=== PATIENT | female | born 1985 | race Caucasian/White ===

== ENCOUNTER → 2018-02-19 | Outpatient (CLI) | payer OTHER ==
--- NOTE | 2018-02-19 10:16 | MM ---
Reason for exam: clinical finding. History: Family history of breast cancer in maternal grandmother. Took hormonal contraceptives for 1 year. Indicated problem(s): lump or thickening in the left breast. Physical Findings: Nurse did not find any significant physical abnormalities on exam. MG Diagnostic Mammo w CAD MATIAS Bilateral CC and MLO view(s) were taken. There are scattered fibroglandular densities. No suspicious calcifications are seen. There is no discrete abnormality including area of concern. These results were verbally communicated with the patient and result sheet given to the patient on 02/19/18. ASSESSMENT: Negative, BI-RAD 1 RECOMMENDATION: Routine screening mammogram of both breasts at age 42. Manage patient on a clinical basis.
== END ==
LOC: RADMAMWWP 09:22
PROVIDERS: ATTEND Family Medicine
DX: N63.24 Unspecified lump in the left breast, lower inner quadrant (principal)
CPT/HCPCS: 77066

== ENCOUNTER → 2018-09-14 | Outpatient (CLI) | payer OTHER ==
--- NOTE | 2018-09-14 11:56 | XR ---
EXAMINATION TYPE: XR lumbar spine 2 or 3V DATE OF EXAM: 09/14/2018 COMPARISON: None HISTORY: Low back pain TECHNIQUE: Three-view lumbar spine FINDINGS: No acute fractures are evident. Disc heights are preserved. Vertebral body heights are pres erved. Alignment is normal. T12 ribs are rudimentary. IMPRESSION: 1. Normal three-view lumbar spine
== END ==
LOC: RADXRMAIN 11:28
PROVIDERS: ATTEND Physician Assistant
DX: M54.5 Low back pain (principal)
CPT/HCPCS: 72100

== ENCOUNTER → 2019-09-25 | Outpatient (CLI) | payer OTHER ==
--- NOTE | 2019-09-26 08:56 | MM ---
Reason for exam: clinical finding. Last mammogram was performed 1 year and 7 months ago. History: Family history of breast cancer in maternal grandmother. Took hormonal contraceptives for 1 year. Physical Findings: Nurse Summary: 1.5 x 1cm nodule in the left breast at 10 o'clock (nurse ts). MG 3D Diag Mammo W/Cad LT CC and MLO view(s) were taken of the left breast. Prior study comparison: February 19, 2018, bilateral MG diagnostic mammo w CAD MATIAS. There are scattered fibroglandular densities. Finding: There is a 5 mm circumscribed round mass in the left breast consistent with dermal based at BB. These results were verbally communicated with the patient and result sheet given to the patient on 09/25/19. ASSESSMENT: Benign, BI-RAD 2 RECOMMENDATION: Routine screening mammogram of both breasts at age 42. (unless new problem) Manage on a clinical basis with regard to probable dermatic lesion at right axilla.
== END | disposition home or self-care (01) ==
LOC: RADMAMWWP 09:05
PROVIDERS: ATTEND Family Medicine
DX: N63.24 Unspecified lump in the left breast, lower inner quadrant (principal)
CPT/HCPCS: 77065; G0279; 77061

== ENCOUNTER → 2019-12-27 | Outpatient (CLI) | payer OTHER ==
[2019-12-27 11:17] VITALS: BP 124/79; PULSE 68; RESP 18; TEMP 98.3
--- NOTE | 2019-12-27 12:31 | P.GSHP ---
History of Present Illness H&P Date: 12/27/19 Chief Complaint: lump left breast Berna is a 34 year old white female seen in consultation for Dr. Patterson with a complaint of a lump on her left breast at skin level. She also complains of swelling of her axilla's bilaterally. She also complains of pain in her left breast. She had a bilateral mammogram approximately 1 year ago and also an ultrasound of the left breast at that time which is felt to be benign. However she did have a repeat left breast mammogram and [id number]. This revealed a 5 mm circumscribed round mass in the left breast consistent with dermal base. This was felt to be benign BIRADS 2 routine screening of both breasts at age 42 unless there is a new problem. Her last mammogram prior to this was in January 2018 this was bilateral and negative BIRADS 1. The patient states that the nodule in the breast fluctuates in size at times. She does not note anything that causes her to get larger. He has gotten red and inflamed in the past requiring antibiotic use. When it is red and inflamed it is tender. The patient also complains of some discomfort under her left breast when raising her arm or with certain movements. The patient will be described as stabbing at any place otherwise. This all started about 2 years ago when she was diagnosed with a ruptured appy. The patient additionally complains of intermittent swelling of the glands under her arms, size. These will heal and then another one will flareup. She questions whether this may be hidradenitis suppurativa. Family history: Maternal great-grandmother bilateral mastectomy Maternal grandfather: Skin cancer with brain metastases uncertain as to the type was not melanoma History: Menarche: 15 , 3 miscarriages, breast fed: yes, age at : 25 periods regular BCP: 7 years hormones: none Surgical history: 1. Appendectomy 2. Right femur titanium bettie 3. left kidney stint 1991 4. Medical History: none Social History: smoke: none alcohol: none drugs: none - Constitutional Constitutional: Denies chills, Denies fever - EENT Eyes: denies blurred vision, denies pain Ears: deny: decreased hearing, tinnitus Ears, nose, mouth and throat: Denies headache, Denies sore throat - Breasts Breasts: bilateral: as per HPI - Cardiovascular Cardiovascular: Denies chest pain, Denies shortness of breath - Respiratory Respiratory: Denies cough, Denies 7 - Gastrointestinal Comment: appy Gastrointestinal: Denies abdominal pain, Denies diarrhea, Denies nausea, Denies vomiting - Genitourinary (Female) Genitourinary: Denies dysuria, Denies hematuria - Menstruation Menstruation: Reports period normal - Musculoskeletal Musculoskeletal: Reports as per HPI - Integumentary Integumentary: Reports rash, Denies pruritus - Neurological Comment: right leg numbness and weakness Neurological: Reports numbness, Reports weakness - Psychiatric Comment: PTSD Psychiatric: Reports anxiety - Endocrine Endocrine: Reports fatigue, Denies weight change - Hematologic/Lymphatic Comment: none - Allergic/Immunologic Allergic/Immunologic: Reports as per HPI Past Medical History Additional Past Medical History / Comment(s): Pt states she has "one small kidney" History of Any Multi-Drug Resistant Organisms: None Reported Past Surgical History: Section, Orthopedic Surgery Additional Past Surgical History / Comment(s): right femur surgery d/t fracture, renal stent at the age of 6 yrs-cannot recall laterality. Additional Past Anesthesia/Blood Transfusion Reaction / Comment(s): Woke during renal stenting at the age of 6 yrs, past "anesthesia aggression" when waking from surgery. Past Psychological History: No Psychological Hx Reported Additional Psychological History / Comment(s): Pt resides with her grandmother and her daughter. She is independent. Smoking Status: Never smoker Past Alcohol Use History: None Reported Past Drug Use History: None Reported - Past Family History Mother Family Medical History: No Reported History Additional Family Medical History / Comment(s): Mother is healthy Father History Unknown: Yes Medications and Allergies Home Medications Medication Instructions Recorded Confirmed Type Multivit with Calcium,Iron,Min 1 each PO DAILY 12/27/19 12/27/19 History [Women's Multivitamin] Previfem Oral Contraceptives 1 tab PO DAILY 12/27/19 12/27/19 History Allergies Allergy/AdvReac Type Severity Reaction Status Date / Time Cephalosporins Allergy Unknown Verified 12/27/19 11:17 Childhood Penicillins Allergy Unknown Verified 12/27/19 11:17 Childhood Surgical - Exam Vital Signs Temp Pulse Resp BP Pulse Ox 98.3 F 68 18 124/79 100 12/27/19 11:13 12/27/19 11:13 12/27/19 11:13 12/27/19 11:13 12/27/19 11:13 BMI 36.2 - General obese - Eyes normal ocular movement - ENT no hearing loss, no congestion - Neck trachea midline - Respiratory normal respiratory effort, clear to auscultation - Cardiovascular Rhythm: regular Heart Sounds: normal: S1, S2 - Abdomen Abdomen: soft, bowel sounds - Integumentary no rash - Neurologic no disoriented, no combative - Musculoskeletal normal gait, normal posture - Psychiatric oriented to time, oriented to person, oriented to place, speech is normal, memory intact breast exam: BRA: 38D inspection: Right breast smaller than left breast, changes consistent with probable hidradenitis in the axilla greater on the right than the left Palpation: Right breast: Multi-positional exam reveals a small subcutaneous nodular area in the lower inner quadrant, otherwise fibrocystic changes no dominant masses or nodules of concern Right axilla: Probable hidradenitis no adenopathy of concern Left breast: Multi-positional exam approximately 11:00 subcutaneous nodule: No dominant masses or nodules of concern, fibrocystic changes Under the left breast at 6:00 is a another nodule approximately 5 mm in size Left axilla: No adenopathy of concern Bilateral groins: Probable hidradenitis skin changes Results Mammogram left breast report reviewed Assessment and Plan Assessment: Impression: 1. Probable hidradenitis 2. Masses in the left breast 11:00, right breast lower inner quadrant, and just underneath the left breast may be cystic in nature and would recommend resection 3. Pain left breast probable fibrocystic in nature 4. Family history breast cancer Plan: 1. Excision of 3 masses noted in the left breast at 11:00, right breast lower inner quadrant, and being just beneath the left breast at 6:00 2. Antibiotic for probable hidradenitis patient with some inflammation in the right axilla ( Levaquin, 500 mg 1 by mouth daily for 7 days) 3. Follow-up with Dr. Patterson regarding hidradenitis CC: Dr. Patterson encounter 45 minutes, > 50% of time in planning and counselling
== END | disposition home or self-care (01) ==
LOC: WWCWWP 10:49
PROVIDERS: ATTEND Surgery
DX: Z53.9 Procedure and treatment not carried out, unspecified reason (principal)

== ENCOUNTER → 2020-05-25 | Outpatient (CLI) | payer OTHER ==
--- NOTE | 2020-05-25 14:53 | US ---
EXAMINATION TYPE: US abdomen complete DATE OF EXAM: 05/25/2020 COMPARISON: NONE CLINICAL HISTORY: R10.11 RT UPPER QUADRANT PAIN. Patient states feeling fullness. NPO. hx of small renal since childhood. EXAM MEASUREMENTS: Liver Length: 11.4 cm Gallbladder Wall: 0.2 cm CBD: 0.5 cm Spleen: 9.5 cm Right Kidney: 8.3 x 3.8 x 2.8 cm Left Kidney: 11.1 x 4.5 x 4.6 cm Pancreas: wnl Liver: wnl Gallbladder: wnl Evidence for sonographic Mahoney's sign: neg CBD: wnl Spleen: wnl Right Kidney: No hydronephrosis or masses seen. Appears smaller in size compared to contralateral i mage. Left Kidney: No hydronephrosis or masses seen Upper IVC: wnl Abd Aorta: No AAA visualized The liver is homogenous. The intrahepatic portion of the IVC and proximal abdominal aorta are within normal limits. There is no evidence of cholelithiasis. Common bile duct is unremarkable. The visu alized portions of the pancreas are homogenous. The spleen is unremarkable. Kidneys are free of hyd ronephrosis. No renal lesions are seen. IMPRESSION: Diminutive right kidney. Otherwise unremarkable study.
== END | disposition home or self-care (01) ==
LOC: RADUSWWP 12:51
PROVIDERS: ATTEND Family Medicine
DX: N27.0 Small kidney, unilateral (principal)
CPT/HCPCS: 76700

== ENCOUNTER → 2020-06-16 | Outpatient (CLI) | payer OTHER ==
[2020-06-16 19:17] LABS: Basophils # (A) 0.04 X 10*3/uL (0.00-0.10); Basophils % (A) 0.4 %; Eosinophils # (A) 0.02 X 10*3/uL (0.04-0.35); Eosinophils % (A) 0.2 %; HCT 43.8 % (37.2-46.3); Lymphocytes # (A) 1.76 X 10*3/uL (0.90-5.00); Lymphocytes % (A) 18.1 %; MCH 30.4 pg (27.0-32.0); MCHC 34.2 g/dL (32.0-37.0); MCV 88.8 fL (80.0-97.0); Mean Platelet Volume 11.7 fL (9.5-12.2); Monocytes # (A) 0.52 X 10*3/uL (0.20-1.00); Monocytes % (A) 5.3 %; Neutrophils # (A) 7.37 X 10*3/uL (1.80-7.70); Neutrophils % (A) 75.7 %; Platelet Count 286 X 10*3/uL (140-440); RBC 4.93 X 10*6/uL (4.10-5.20); RDW 12.1 % (11.5-14.5); WBC 9.74 X 10*3/uL (4.50-10.00)
[2020-06-16 20:05] LABS: Erythrocyte Sedimentation Rate 13 mm/Hr (0-20)
[2020-06-16 20:46] LABS: African American GFR (CKD) 98.1 (60.0-200.0); Albumin 4.2 g/dL (3.80-4.90); Albumin/Globulin Ratio 1.27 (1.60-3.17); Anion Gap 7.9 mmol/L (4.00-12.00); BUN/Creat Ratio 15.56 Ratio (12.00-20.00); C Reactive Protein 0.5 mg/dL (0.0-0.8); Calcium 10.5 mg/dL (8.7-10.3); Carbon Dioxide 24.1 mmol/L (21.6-31.8); Globulin 3.3 g/dL (1.6-3.3); Non-African American GFR(CKD) 84.6 (60.0-200.0); Potassium 4.3 mmol/L (3.5-5.5); Total Bilirubin 0.6 mg/dL (0.3-1.2); Total Protein 7.5 g/dL (6.2-8.2)
[2020-06-16 20:54] LABS: Folate, Serum 4.2 ng/mL
[2020-06-16 21:26] LABS: Anti-DNA, DS unit <1.0 IU/mL; DNA Double-Stranded NEGATIVE (NEGATIVE)
== END | disposition home or self-care (01) ==
LOC: LABWHC1 12:06
PROVIDERS: ATTEND Nurse Practitioner Family
DX: R20.2 Paresthesia of skin (principal)
CPT/HCPCS: 36415; 80053; 82607; 82746; 83874; 85025; 85652; 86038; 86140; 86225

== ENCOUNTER 2020-06-21 04:12 | Emergency (ER) | payer OTHER ==
--- NOTE | 2020-06-21 04:19 | ED ---
Anxiety HPI - General Stated Complaint: Anxiety Time Seen by Provider: 06/21/20 04:19 Source: RN notes reviewed, old records reviewed Limitations: no limitations - History of Present Illness Initial Comments: This is a 35-year-old female DF for evaluation. Patient Dese for anxiety reaction today. History of anxiety. Patient states her anxiety is severe although this is much worse than normal. She has left arm numbness tingling states that she is being evaluated for that she does have evaluation of inability to cause her finding cause of symptoms. Patient does also complaining of neck pain neck range of motion which is also currently being evaluated. Patient states his symptoms and panic came on tonight which is different about his prior felt when she seen her family doctor in the past MD Complaint: anxiety, other (Left arm numbness and tingling in neck pain) -: month(s) Symptoms: dyspnea, palpitations, extremity numbness/tingling Previous History of Same: Yes Severity: moderate Quality: intermittent Provoking factors: none known Improves With: nothing Worsens With: nothing Associated symptoms: weakness - Related Data Home Medications: Home Medications Medication Instructions Recorded Confirmed Multivit with Calcium,Iron,Min 1 each PO DAILY 12/27/19 12/27/19 [Women's Multivitamin] Previfem Oral Contraceptives 1 tab PO DAILY 12/27/19 12/27/19 Previous Rx's Medication Instructions Recorded ALPRAZolam [Xanax] 1 mg PO DAILY PRN 3 Days #3 tab 06/24/20 Ondansetron Odt [Zofran Odt] 4 mg PO Q8HR PRN #10 tab 06/24/20 Allergies/Adverse Reactions: Allergies Allergy/AdvReac Type Severity Reaction Status Date / Time Cephalosporins Allergy Unknown Verified 12/27/19 11:17 Childhood Penicillins Allergy Unknown Verified 12/27/19 11:17 Childhood ketorolac [From Toradol] AdvReac Rapid Verified 06/21/20 04:24 Heart Rate Review of Systems ROS Statement: Those systems with pertinent positive or pertinent negative responses have been documented in the HPI. ROS Other: All systems not noted in ROS Statement are negative. Past Medical History Additional Past Medical History / Comment(s): Pt states she has "one small kidney" History of Any Multi-Drug Resistant Organisms: None Reported Past Surgical History: Section, Orthopedic Surgery Additional Past Surgical History / Comment(s): right femur surgery d/t fracture, renal stent at the age of 6 yrs-cannot recall laterality. Additional Past Anesthesia/Blood Transfusion Reaction / Comment(s): Woke during renal stenting at the age of 6 yrs, past "anesthesia aggression" when waking from surgery. Past Psychological History: No Psychological Hx Reported Additional Psychological History / Comment(s): Pt resides with her grandmother and her daughter. She is independent. Smoking Status: Never smoker Past Alcohol Use History: None Reported Past Drug Use History: None Reported - Past Family History Mother Family Medical History: No Reported History Additional Family Medical History / Comment(s): Mother is healthy Father History Unknown: Yes General Exam General appearance: anxious Head exam: Present: atraumatic, normocephalic, normal inspection Eye exam: Present: normal appearance, PERRL, EOMI. Absent: scleral icterus, conjunctival injection, periorbital swelling ENT exam: Present: normal exam, mucous membranes moist Neck exam: Present: normal inspection. Absent: tenderness, meningismus, lymphadenopathy Respiratory exam: Present: normal lung sounds bilaterally. Absent: respiratory distress, wheezes, rales, rhonchi, stridor Cardiovascular Exam: Present: regular rate, normal rhythm, normal heart sounds. Absent: systolic murmur, diastolic murmur, rubs, gallop, clicks GI/Abdominal exam: Present: soft, normal bowel sounds. Absent: distended, tend erness, guarding, rebound, rigid Extremities exam: Present: normal inspection, full ROM, normal capillary refill. Absent: tenderness, pedal edema, joint swelling, calf tenderness Back exam: Present: normal inspection Neurological exam: Present: alert, oriented X3, CN II-XII intact Psychiatric exam: Present: normal affect, normal mood Skin exam: Present: warm, dry, intact, normal color. Absent: rash Course Vital Signs 06/21/20 06/21/20 04:13 06:30 Temperature 98.3 F Pulse Rate 92 93 Respiratory 18 18 Rate Blood Pressure 149/103 127/84 O2 Sat by Pulse 98 99 Oximetry - Reevaluation(s) Reevaluation #1: Medical record is reviewed Patient symptoms are improved here in the ER Patient informed results and questions have been answered Patient family feel comfortable for discharge Medical Decision Making - Medical Decision Making 34 female DF for evaluation of left arm numbness and tingling. Patient does have severe anxiety reaction currently. Test here in the ER otherwise negative and she can be discharged home - Lab Data Result diagrams: 06/21/20 05:32 06/21/20 05:32 Lab Results 06/21/20 06/21/20 06/21/20 Range/Units 05:32 05:32 05:32 WBC 10.8 H (3.8-10.6) k/uL RBC 4.94 (3.80-5.40) m/uL Hgb 15.4 (11.4-16.0) gm/dL Hct 43.7 (34.0-46.0) % MCV 88.4 (80.0-100.0) fL MCH 31.1 (25.0-35.0) pg MCHC 35.2 (31.0-37.0) g/dL RDW 11.9 (11.5-15.5) % Plt Count 255 (150-450) k/uL MPV 9.7 Neutrophils % 74 % Lymphocytes % 17 % Monocytes % 5 % Eosinophils % 2 % Basophils % 1 % Neutrophils # 8.1 H (1.3-7.7) k/uL Lymphocytes # 1.9 (1.0-4.8) k/uL Monocytes # 0.5 (0-1.0) k/uL Eosinophils # 0.2 (0-0.7) k/uL Basophils # 0.1 (0-0.2) k/uL PT 10.7 (9.0-12.0) sec INR 1.0 (<1.2) APTT 20.3 L (22.0-30.0) sec Sodium 139 (137-145) mmol/L Potassium 4.6 (3.5-5.1) mmol/L Chloride 105 (98-107) mmol/L Carbon Dioxide 26 (22-30) mmol/L Anion Gap 8 mmol/L BUN 18 H (7-17) mg/dL Creatinine 0.83 (0.52-1.04) mg/dL Est GFR (CKD-EPI)AfAm >90 (>60 ml/min/1.73 sqM) Est GFR (CKD-EPI)NonAf >90 (>60 ml/min/1.73 sqM) Glucose 107 H (74-99) mg/dL Plasma Lactic Acid Juve (0.7-2.0) mmol/L Calcium 9.9 (8.4-10.2) mg/dL Phosphorus 2.7 (2.5-4.5) mg/dL Magnesium 2.0 (1.6-2.3) mg/dL Total Bilirubin 1.0 (0.2-1.3) mg/dL AST 29 (14-36) U/L ALT 23 (4-34) U/L Alkaline Phosphatase 63 (38-126) U/L Creatine Kinase 84 (30-135) U/L CK-MB (CK-2) (0.0-2.4) ng/mL Troponin I (0.000-0.034) ng/mL NT-Pro-B Natriuret Pep pg/mL Total Protein 8.1 (6.3-8.2) g/dL Albumin 4.6 (3.5-5.0) g/dL Urine Color Urine Appearance (Clear) Urine pH (5.0-8.0) Ur Specific [place] (1.001-1.035) Urine Protein (Negative) Urine Glucose (UA) (Negative) Urine Ketones (Negative) Urine Blood (Negative) Urine Nitrite (Negative) Urine Bilirubin (Negative) Urine Urobilinogen (<2.0) mg/dL Ur Leukocyte Esterase (Negative) 06/21/20 06/21/20 06/21/20 Range/Units 05:32 05:32 05:32 WBC (3.8-10.6) k/uL RBC (3.80-5.40) m/uL Hgb (11.4-16.0) gm/dL Hct (34.0-46.0) % MCV (80.0-100.0) fL MCH (25.0-35.0) pg MCHC (31.0-37.0) g/dL RDW (11.5-15.5) % Plt Count (150-450) k/uL MPV Neutrophils % % Lymphocytes % % Monocytes % % Eosinophils % % Basophils % % Neutrophils # (1.3-7.7) k/uL Lymphocytes # (1.0-4.8) k/uL Monocytes # (0-1.0) k/uL Eosinophils # (0-0.7) k/uL Basophils # (0-0.2) k/uL PT (9.0-12.0) sec INR (<1.2) APTT (22.0-30.0) sec Sodium (137-145) mmol/L Potassium (3.5-5.1) mmol/L Chloride (98-107) mmol/L Carbon Dioxide (22-30) mmol/L Anion Gap mmol/L BUN (7-17) mg/dL Creatinine (0.52-1.04) mg/dL Est GFR (CKD-EPI)AfAm (>60 ml/min/1.73 sqM) Est GFR (CKD-EPI)NonAf (>60 ml/min/1.73 sqM) Glucose (74-99) mg/dL Plasma Lactic Acid Juve 1.2 (0.7-2.0) mmol/L Calcium (8.4-10.2) mg/dL Phosphorus (2.5-4.5) mg/dL Magnesium (1.6-2.3) mg/dL Total Bilirubin (0.2-1.3) mg/dL AST (14-36) U/L ALT (4-34) U/L Alkaline Phosphatase (38-126) U/L Creatine Kinase (30-135) U/L CK-MB (CK-2) <0.2 (0.0-2.4) ng/mL Troponin I <0.012 (0.000-0.034) ng/mL NT-Pro-B Natriuret Pep 33 pg/mL Total Protein (6.3-8.2) g/dL Albumin (3.5-5.0) g/dL Urine Color Urine Appearance (Clear) Urine pH (5.0-8.0) Ur Specific [place] (1.001-1.035) Urine Protein (Negative) Urine Glucose (UA) (Negative) Urine Ketones (Negative) Urine Blood (Negative) Urine Nitrite (Negative) Urine Bilirubin (Negative) Urine Urobilinogen (<2.0) mg/dL Ur Leukocyte Esterase (Negative) 06/21/20 Range/Units 06:39 WBC (3.8-10.6) k/uL RBC (3.80-5.40) m/uL Hgb (11.4-16.0) gm/dL Hct (34.0-46.0) % MCV (80.0-100.0) fL MCH (25.0-35.0) pg MCHC (31.0-37.0) g/dL RDW (11.5-15.5) % Plt Count (150-450) k/uL MPV Neutrophils % % Lymphocytes % % Monocytes % % Eosinophils % % Basophils % % Neutrophils # (1.3-7.7) k/uL Lymphocytes # (1.0-4.8) k/uL Monocytes # (0-1.0) k/uL Eosinophils # (0-0.7) k/uL Basophils # (0-0.2) k/uL PT (9.0-12.0) sec INR (<1.2) APTT (22.0-30.0) sec Sodium (137-145) mmol/L Potassium (3.5-5.1) mmol/L Chloride (98-107) mmol/L Carbon Dioxide (22-30) mmol/L Anion Gap mmol/L BUN (7-17) mg/dL Creatinine (0.52-1.04) mg/dL Est GFR (CKD-EPI)AfAm (>60 ml/min/1.73 sqM) Est GFR (CKD-EPI)NonAf (>60 ml/min/1.73 sqM) Glucose (74-99) mg/dL Plasma Lactic Acid Juve (0.7-2.0) mmol/L Calcium (8.4-10.2) mg/dL Phosphorus (2.5-4.5) mg/dL Magnesium (1.6-2.3) mg/dL Total Bilirubin (0.2-1.3) mg/dL AST (14-36) U/L ALT (4-34) U/L Alkaline Phosphatase (38-126) U/L Creatine Kinase (30-135) U/L CK-MB (CK-2) (0.0-2.4) ng/mL Troponin I (0.000-0.034) ng/mL NT-Pro-B Natriuret Pep pg/mL Total Protein (6.3-8.2) g/dL Albumin (3.5-5.0) g/dL Urine Color Yellow Urine Appearance Clear (Clear) Urine pH 8.0 (5.0-8.0) Ur Specific [place] 1.031 (1.001-1.035) Urine Protein Trace H (Negative) Urine Glucose (UA) Negative (Negative) Urine Ketones Trace H (Negative) Urine Blood Negative (Negative) Urine Nitrite Negative (Negative) Urine Bilirubin Negative (Negative) Urine Urobilinogen <2.0 (<2.0) mg/dL Ur Leukocyte Esterase Negative (Negative) - EKG Data -: EKG Interpreted by Me (EKG shows sinus rhythm 82 NE 120 QTc 4 QTC 441) - Radiology Data Radiology results: report reviewed (CT brain C-spine chest is negative for acute disease), image reviewed Disposition Clinical Impression: Arm paresthesia, left, Anxiety Disposition: HOME SELF-CARE Condition: Good Instructions (If sedation given, give patient instructions): Paresthesia (ED), Anxiety (ED) Is patient prescribed a controlled substance at d/c from ED?: No Referrals: Keenan Patterson DO [Primary Care Provider] - 1-2 days
[2020-06-21 04:24] VITALS: RESP 18; TEMP 98.3
[2020-06-21] MEDS ORDERED: LORazepam 2 MG/ML INJ IV STA (04:52)
[2020-06-21] MEDS ORDERED: SODIUM CHLORIDE 0.9% 1,000 ML IV STA ×2 (04:52)
[2020-06-21 05:49] LABS: Basophils # (A) 0.1 k/uL (0-0.2); Basophils % (A) 1 %; Eosinophils # (A) 0.2 k/uL (0-0.7); Eosinophils % (A) 2 %; HCT 43.7 % (34.0-46.0); HGB 15.4 gm/dL (11.4-16.0); Lymphocytes # (A) 1.9 k/uL (1.0-4.8); Lymphocytes % (A) 17 %; MCH 31.1 pg (25.0-35.0); MCHC 35.2 g/dL (31.0-37.0); MCV 88.4 fL (80.0-100.0); Mean Platelet Volume 9.7; Monocytes # (A) 0.5 k/uL (0-1.0); Monocytes % (A) 5 %; Neutrophils # (A) 8.1 k/uL (1.3-7.7); Neutrophils % (A) 74 %; Platelet Count 255 k/uL (150-450); RBC 4.94 m/uL (3.80-5.40); RDW 11.9 % (11.5-15.5); WBC 10.8 k/uL (3.8-10.6)
[2020-06-21 06:10] LABS: ALT 23 U/L (4-34); AST 29 U/L (14-36); African American GFR (CKD) >90 (>60 ml/min/1.73 sqM); Albumin 4.6 g/dL (3.5-5.0); Alkaline Phosphatase 63 U/L (38-126); Anion Gap 8 mmol/L; Blood Urea Nitrogen 18 mg/dL (7-17); Calcium 9.9 mg/dL (8.4-10.2); Carbon Dioxide 26 mmol/L (22-30); Chloride 105 mmol/L (98-107); Creatine Kinase 84 U/L (30-135); Glucose 107 mg/dL (74-99); Non-African American GFR(CKD) >90 (>60 ml/min/1.73 sqM); Phosphorus 2.7 mg/dL (2.5-4.5); Potassium 4.6 mmol/L (3.5-5.1); Sodium 139 mmol/L (137-145); Total Protein 8.1 g/dL (6.3-8.2)
[2020-06-21 06:20] LABS: Prothrombin Time 10.7 sec (9.0-12.0)
[2020-06-21 06:21] LABS: Partial Thromboplastin Time 20.3 sec (22.0-30.0)
[2020-06-21 06:25] LABS: Creatine Kinase MB <0.2 ng/mL (0.0-2.4); Troponin I <0.012 ng/mL (0.000-0.034)
--- NOTE | 2020-06-21 06:40 | CT ---
EXAMINATION TYPE: CT brain cspine wo con DATE OF EXAM: 06/21/2020 COMPARISON: NONE HISTORY: Lt arm numbness. Headache. Neck pain. CT DLP: 1781.8 mGycm. Automated Exposure Control for Dose Reduction was Utilized. TECHNIQUE: CT scan of the head and cervical spine are performed without contrast. FINDINGS: There is no acute intracranial hemorrhage, mass effect, or midline shift identified. The ventricles and sulci are within normal limits in size. Oliva-white matter differentiation is [place]. The globes are intact and the visualized sinuses are clear. Cervical spine is visualized in its entirety from C1 through upper thoracic levels and demonstrates s traightened alignment without evidence of acute fracture or dislocation. Prevertebral soft tissue ap pears within normal limits. The C1-C2 articulation is within normal limits on the coronal images. Vertebral body heights and disc space heights are maintained. Spinal canal grossly preserved. Thyroid gland appears within normal limits. Visualized upper lungs are clear. Axial images within normal reyes its. IMPRESSION: 1. There is no acute fracture or dislocation evident in the cervical spine. 2. No acute intracranial hemorrhage, mass effect, or midline shift is seen.
--- NOTE | 2020-06-21 06:42 | CT ---
EXAMINATION TYPE: CT angio chest DATE OF EXAM: 06/21/2020 6:33 AM COMPARISON: None. HISTORY: "knot" Lt shoulder blade area, Lt arm numbness CT DLP: 465.1 mGycm Automated exposure control for dose reduction was used. CONTRAST: CTA scan of the thorax is performed with IV Contrast, patient injected with 70 mL of Isovue 370, pulm onary embolism protocol. MIP images are created and reviewed. FINDINGS: LUNGS: Exam slightly suboptimal as patient unable to hold breath. Respiratory motion artifact especia lly lower lungs is present. The lungs are grossly clear with exception of mild left lateral basilar l inear atelectasis. There is no concerning parenchymal mass or nodule identified. There is no pleura l effusion or pneumothorax seen bilaterally. The tracheobronchial tree is patent. MEDIASTINUM: There is slightly suboptimal bolus with near equal contrast in right and left heart syst ems but there is no CT evidence for pulmonary embolism. Satisfactory enhancement of the aorta without aneurysm or dissection. 4 vessel origins from arch which is normal variant. There are no greater jesica n 1 cm hilar or mediastinal lymph nodes. No cardiomegaly or pericardial effusion is seen. OTHER: No additional significant abnormality is seen. IMPRESSION: No CT evidence for acute pulmonary embolism. No acute pulmonary process.
[2020-06-21 06:45] VITALS: BP 127/84; PULSE 93
[2020-06-21 06:54] LABS: Appearance,Urine Clear (Clear); Bilirubin,Urine Negative (Negative); Blood,Urine Negative (Negative); Color,Urine Yellow; Glucose,Urine (UA) Negative (Negative); Ketones,Urine Trace (Negative); Leukocyte Esterase,Urine Negative (Negative); Nitrite,Urine Negative (Negative); Protein,Urine Trace (Negative); Specific Gravity,Urine 1.031 (1.001-1.035); Urobilinogen,Urine <2.0 mg/dL (<2.0)
== END 2020-06-21 07:11 | disposition home or self-care (01) ==
LOC: EC 04:12
DX: F41.9 Anxiety disorder, unspecified (principal); R20.2 Paresthesia of skin; Z79.3 Long term (current) use of hormonal contraceptives; Z88.1 Allergy status to other antibiotic agents; Z88.0 Allergy status to penicillin; Z88.6 Allergy status to analgesic agent
CPT/HCPCS: 36415; 93005; 83880; 80053; 82550; 82553; 83605; 83735; 84100; 84484; 85025; 85610; 85730; 81003; 72125; 70450; 71275; 99284; 96374; 96361; J2060; Q9967

== ENCOUNTER 2020-06-24 01:09 | Emergency (ER) | payer OTHER ==
--- NOTE | 2020-06-24 01:17 | ED ---
Anxiety HPI - General Stated Complaint: Anxiety Time Seen by Provider: 06/24/20 01:12 - History of Present Illness Initial Comments: 34-year-old female presents to the emergency department with a chief complaint of anxiety. Patient reports history of anxiety but it has been increasing severity over the last 2-3 weeks. Patient reports she is barely sleeping due to her anxiety. Patient reports racing thoughts and is not able to calm herself. Patient reports tremors and her arms and legs. Patient reports she is having panic attacks for no particular reason. She reports generalized chest tightness with no shortness of breath. States she was evaluated emergency department 3 days ago with exact same symptoms with no acute findings. Patient states after she was given Ativan, her symptoms completely resolved and she was able to get a nights sleep that day. Patient states the symptoms were reemerging again and she saw her primary care physician who started her on Effexor. Patient reports taking Effexor 2 days. The primary care physician advised her that it will take a few weeks before the medication isn't full therapeutic dose. Patient is aware. Denies lightheadedness, dizziness, headaches, blurry vision, one-sided weakness or paresthesias. - Related Data Home Medications: Home Medications Medication Instructions Recorded Confirmed Multivit with Calcium,Iron,Min 1 each PO DAILY 12/27/19 12/27/19 [Women's Multivitamin] Previfem Oral Contraceptives 1 tab PO DAILY 12/27/19 12/27/19 Previous Rx's Medication Instructions Recorded ALPRAZolam [Xanax] 1 mg PO DAILY PRN 3 Days #3 tab 06/24/20 Ondansetron Odt [Zofran Odt] 4 mg PO Q8HR PRN #10 tab 06/24/20 Allergies/Adverse Reactions: Allergies Allergy/AdvReac Type Severity Reaction Status Date / Time Cephalosporins Allergy Unknown Verified 12/27/19 11:17 Childhood Penicillins Allergy Unknown Verified 12/27/19 11:17 Childhood ketorolac [From Toradol] AdvReac Rapid Verified 06/21/20 04:24 Heart Rate Review of Systems ROS Statement: Those systems with pertinent positive or pertinent negative responses have been documented in the HPI. ROS Other: All systems not noted in ROS Statement are negative. Past Medical History Additional Past Medical History / Comment(s): Pt states she has "one small kidney" History of Any Multi-Drug Resistant Organisms: None Reported Past Surgical History: Section, Orthopedic Surgery Additional Past Surgical History / Comment(s): right femur surgery d/t fracture, renal stent at the age of 6 yrs-cannot recall laterality. Additional Past Anesthesia/Blood Transfusion Reaction / Comment(s): Woke during renal stenting at the age of 6 yrs, past "anesthesia aggression" when waking from surgery. Past Psychological History: No Psychological Hx Reported Additional Psychological History / Comment(s): Pt resides with her grandmother and her daughter. She is independent. Smoking Status: Never smoker Past Alcohol Use History: None Reported Past Drug Use History: None Reported - Past Family History Mother Family Medical History: No Reported History Additional Family Medical History / Comment(s): Mother is healthy Father History Unknown: Yes General Exam Limitations: no limitations General appearance: alert, in no apparent distress, obese Head exam: Present: atraumatic, normocephalic, normal inspection Eye exam: Present: normal appearance, PERRL, EOMI Pupils: Present: normal accommodation ENT exam: Present: normal exam, normal oropharynx, mucous membranes moist Neck exam: Present: normal inspection, full ROM. Absent: tenderness Respiratory exam: Present: normal lung sounds bilaterally. Absent: respiratory distress Cardiovascular Exam: Present: regular rate, normal rhythm, normal heart sounds GI/Abdominal exam: Present: soft. Absent: distended, tenderness, guarding, rebound Extremities exam: Present: normal inspection, full ROM, normal capillary refill. Absent: tenderness Back exam: Present: normal inspection, full ROM. Absent: tenderness, CVA tenderness (R), CVA tenderness (L) Neurological exam: Present: alert, oriented X3, normal gait Psychiatric exam: Present: normal affect, anxious Skin exam: Present: warm, dry, intact, normal color Course Vital Signs 06/24/20 01:12 Pulse Rate 102 H Respiratory 20 Rate Blood Pressure 119/82 O2 Sat by Pulse 99 Oximetry Medical Decision Making - Medical Decision Making 34-year-old female with history of incident he presents emergency Department with a chief complaint of anxiety. On physical examination, patient has generalized tremors and she is very anxious when talking. EKG shows sinus rhythm with no ST or T-wave changes. Patient was given 1 mg of Ativan with significant improvement of symptoms. Her tremors resolved. Patient was advised to continue taking the Effexor. Patient had a full cardiac workup 3 days ago and emergency Department with no acute findings. Patient will be discharged with Xanax. She was advised to follow-up with the primary care physician or psychiatrist. Return parameters discussed the patient was understanding and agreeable. Case discussed with - EKG Data EKG Comments: Sinus rhythm and no ST or T-wave changes ventricular rate 81, [place] 114, QRS 86, QTC 448. Disposition Clinical Impression: Acute anxiety, Panic attack Disposition: HOME SELF-CARE Condition: Stable Instructions (If sedation given, give patient instructions): Anxiety (ED), Panic Attack (ED) Additional Instructions: Follow-up with a psychiatrist or your primary care doctor. Continue taking the Effexor. Return to emergency department if symptoms worsen. Prescriptions: ALPRAZolam [Xanax] 1 mg PO DAILY PRN 3 Days #3 tab PRN Reason: Anxiety Ondansetron Odt [Zofran Odt] 4 mg PO Q8HR PRN #10 tab PRN Reason: Nausea Is patient prescribed a controlled substance at d/c from ED?: No Referrals: Keenan Ptaterson DO [Primary Care Provider] - 1-2 days Time of Disposition: 01:50
[2020-06-24] MEDS ORDERED: LORazepam 2 MG/ML INJ IV STA (01:32)
[2020-06-24] MEDS ORDERED: ONDANSETRON 4 MG/2 ML VIAL IVP STA (02:18)
[2020-06-24] MEDS ORDERED: SODIUM CHLORIDE 0.9% 1,000 ML IV STA (02:18)
[2020-06-24] MEDS ORDERED: ALPRAZolam 0.25 MG TAB PO STA (03:44)
[2020-06-24 03:58] VITALS: BP 117/75; PULSE 75; RESP 16
== END 2020-06-24 03:58 | disposition home or self-care (01) ==
LOC: EC 01:09
DX: F41.0 Panic disorder [episodic paroxysmal anxiety] (principal)
CPT/HCPCS: 93005; 99283; J2060; J2405

== ENCOUNTER → 2020-07-04 | Outpatient (CLI) | payer OTHER | LOC: RADMRIMAIN 09:01 | PROVIDERS: ATTEND Nurse Practitioner Family | DX: Z53.9 Procedure and treatment not carried out, unspecified reason (principal) ==

== ENCOUNTER 2020-07-19 01:09 | Emergency (ER) | payer OTHER ==
[2020-07-19 01:17] VITALS: TEMP 98.3
[2020-07-19] MEDS ORDERED: SODIUM CHLORIDE 0.9% 1,000 ML IV STA (01:31)
--- NOTE | 2020-07-19 01:43 | ED ---
General Adult HPI - General Chief complaint: Syncope Stated complaint: Syncope Time Seen by Provider: 07/19/20 01:11 Source: patient, EMS Mode of arrival: EMS Limitations: no limitations - History of Present Illness Initial comments: 34-year-old female with past medical history of remote right femur fracture presents to the emergency room for a chief complaint of syncope. Patient states that she had a syncopal episode tonight while lying on the couch around 5 hours prior to arrival by EMS. Patient states that she was watching her play a video game and had a syncopal episode. States that her said is lasted for about 30 seconds. Patient states this is preceded by heart palpitations. Patient reports that she has been getting palpitations for 2 months now. She states he feels that her heart is beating very heavily. States her can feel it if he presses on her back. Patient reports that she did see the medical collections last week and they scheduled her for a stress test and echocardiogram in one month. Patient states she became concerned that she had a syncopal episode so presents the emergency room. Patient states that her mother has a history of [id number] and she is concerned that this could be causing her symptoms. Patient reports she did have her thyroid evaluated at the start of her symptoms which was normal. Patient has no other complaints at this time including shortness of breath, chest pain, abdominal pain, nausea or vomiting, headache, or visual changes. - Related Data Home Medications Medication Instructions Recorded Confirmed Multivit with Calcium,Iron,Min 1 each PO DAILY 12/27/19 12/27/19 [Women's Multivitamin] Previfem Oral Contraceptives 1 tab PO DAILY 12/27/19 12/27/19 Previous Rx's Medication Instructions Recorded ALPRAZolam [Xanax] 1 mg PO DAILY PRN 3 Days #3 tab 06/24/20 Ondansetron Odt [Zofran Odt] 4 mg PO Q8HR PRN #10 tab 06/24/20 Allergies Allergy/AdvReac Type Severity Reaction Status Date / Time Cephalosporins Allergy Unknown Verified 07/19/20 01:17 Childhood Penicillins Allergy Unknown Verified 07/19/20 01:17 Childhood ketorolac [From Toradol] AdvReac Rapid Verified 07/19/20 01:17 Heart Rate Review of Systems ROS Statement: Those systems with pertinent positive or pertinent negative responses have been documented in the HPI. ROS Other: All systems not noted in ROS Statement are negative. Past Medical History Additional Past Medical History / Comment(s): Pt states she has "one small kidney" History of Any Multi-Drug Resistant Organisms: None Reported Past Surgical History: Section, Orthopedic Surgery Additional Past Surgical History / Comment(s): right femur surgery d/t fracture, renal stent at the age of 6 yrs-cannot recall laterality. Additional Past Anesthesia/Blood Transfusion Reaction / Comment(s): Woke during renal stenting at the age of 6 yrs, past "anesthesia aggression" when waking from surgery. Past Psychological History: No Psychological Hx Reported Smoking Status: Never smoker Past Alcohol Use History: None Reported Past Drug Use History: None Reported - Past Family History Mother Family Medical History: No Reported History Additional Family Medical History / Comment(s): Mother is healthy Father History Unknown: Yes General Exam Limitations: no limitations General appearance: alert, in no apparent distress Head exam: Present: atraumatic, normocephalic, normal inspection Eye exam: Present: normal appearance, PERRL, EOMI. Absent: scleral icterus, conjunctival injection, periorbital swelling ENT exam: Present: normal exam, mucous membranes moist Neck exam: Present: normal inspection. Absent: tenderness, meningismus, lymphadenopathy Respiratory exam: Present: normal lung sounds bilaterally. Absent: respiratory distress, wheezes, rales, rhonchi, stridor Cardiovascular Exam: Present: normal rhythm, tachycardia, normal heart sounds. Absent: systolic murmur, diastolic murmur, rubs, gallop, clicks GI/Abdominal exam: Present: soft, normal bowel sounds. Absent: distended, tenderness, guarding, rebound, rigid Course Vital Signs 07/19/20 07/19/20 01:09 02:16 Temperature 98.3 F Pulse Rate 115 H 71 Respiratory 16 18 Rate Blood Pressure 132/84 120/72 O2 Sat by Pulse 99 99 Oximetry EKG Findings - EKG Comments: EKG Findings:: Sinus tachycardia, ventricular rate 122, [place] interval 124, QTc 461 Medical Decision Making - Medical Decision Making Patient presents initially tachycardic with heart rate of 115. This did improve throughout her stay in the emergency room. She is well-appearing. HPI and physical exam as documented. CBC and CMP unremarkable. EKG shows a sinus tachycardia. Chest xray shows no acute process. Patient has already seen cardiology for this and does have a care plan in place. She is scheduled for a stress test and echo. Discussed case with Dr Culver. At this time, patient is stable for discharge home and outpatient follow up with her medical collections and primary care. She will return to the ER for any worsening symptoms. - Lab Data Result diagrams: 07/19/20 01:56 07/19/20 01:56 Lab Results 07/19/20 07/19/20 07/19/20 Range/Units 01:56 01:56 01:56 WBC 14.4 H (3.8-10.6) k/uL RBC 4.27 (3.80-5.40) m/uL Hgb 13.6 (11.4-16.0) gm/dL Hct 38.1 (34.0-46.0) % MCV 89.2 (80.0-100.0) fL MCH 31.8 (25.0-35.0) pg MCHC 35.6 (31.0-37.0) g/dL RDW 12.3 (11.5-15.5) % Plt Count 269 (150-450) k/uL MPV 8.2 Neutrophils % 77 % Lymphocytes % 15 % Monocytes % 5 % Eosinophils % 2 % Basophils % 0 % Neutrophils # 11.0 H (1.3-7.7) k/uL Lymphocytes # 2.2 (1.0-4.8) k/uL Monocytes # 0.8 (0-1.0) k/uL Eosinophils # 0.3 (0-0.7) k/uL Basophils # 0.1 (0-0.2) k/uL PT 10.4 (9.0-12.0) sec INR 1.0 (<1.2) APTT 22.2 (22.0-30.0) sec Sodium 138 (137-145) mmol/L Potassium 4.0 (3.5-5.1) mmol/L Chloride 107 (98-107) mmol/L Carbon Dioxide 24 (22-30) mmol/L Anion Gap 7 mmol/L BUN 14 (7-17) mg/dL Creatinine 0.92 (0.52-1.04) mg/dL Est GFR (CKD-EPI)AfAm >90 (>60 ml/min/1.73 sqM) Est GFR (CKD-EPI)NonAf 83 (>60 ml/min/1.73 sqM) Glucose 111 H (74-99) mg/dL Calcium 9.0 (8.4-10.2) mg/dL Total Bilirubin 0.4 (0.2-1.3) mg/dL AST 29 (14-36) U/L ALT 29 (4-34) U/L Alkaline Phosphatase 54 (38-126) U/L Troponin I (0.000-0.034) ng/mL Total Protein 6.9 (6.3-8.2) g/dL Albumin 3.9 (3.5-5.0) g/dL 07/19/20 Range/Units 01:56 WBC (3.8-10.6) k/uL RBC (3.80-5.40) m/uL Hgb (11.4-16.0) gm/dL Hct (34.0-46.0) % MCV (80.0-100.0) fL MCH (25.0-35.0) pg MCHC (31.0-37.0) g/dL RDW (11.5-15.5) % Plt Count (150-450) k/uL MPV Neutrophils % % Lymphocytes % % Monocytes % % Eosinophils % % Basophils % % Neutrophils # (1.3-7.7) k/uL Lymphocytes # (1.0-4.8) k/uL Monocytes # (0-1.0) k/uL Eosinophils # (0-0.7) k/uL Basophils # (0-0.2) k/uL PT (9.0-12.0) sec INR (<1.2) APTT (22.0-30.0) sec Sodium (137-145) mmol/L Potassium (3.5-5.1) mmol/L Chloride (98-107) mmol/L Carbon Dioxide (22-30) mmol/L Anion Gap mmol/L BUN (7-17) mg/dL Creatinine (0.52-1.04) mg/dL Est GFR (CKD-EPI)AfAm (>60 ml/min/1.73 sqM) Est GFR (CKD-EPI)NonAf (>60 ml/min/1.73 sqM) Glucose (74-99) mg/dL Calcium (8.4-10.2) mg/dL Total Bilirubin (0.2-1.3) mg/dL AST (14-36) U/L ALT (4-34) U/L Alkaline Phosphatase (38-126) U/L Troponin I <0.012 (0.000-0.034) ng/mL Total Protein (6.3-8.2) g/dL Albumin (3.5-5.0) g/dL Disposition Clinical Impression: Palpitations with regular cardiac rhythm Disposition: HOME SELF-CARE Condition: Good Instructions (If sedation given, give patient instructions): Heart Palpitations (ED) Additional Instructions: Please follow up with primary care and cardiology. Please return to the emergency room for any worsening symptoms. Is patient prescribed a controlled substance at d/c from ED?: No Referrals: Keenan Patterson DO [Primary Care Provider] - 1-2 days Time of Disposition: 03:09
--- NOTE | 2020-07-19 01:54 | XR ---
EXAM: XR Chest, 2 Views CLINICAL HISTORY: Syncope TECHNIQUE: Frontal and lateral views of the chest. COMPARISON: No relevant prior studies available. FINDINGS: Lungs: Unremarkable. No infiltration, atelectasis or mass density. Pleural space: Unremarkable. No pneumothorax. No pleural fluid. Heart: Unremarkable. No cardiomegaly. Mediastinum: Unremarkable. Bones/joints: Unremarkable. No acute abnormalities. IMPRESSION: Negative chest x-rays.
[2020-07-19 02:09] LABS: Basophils # (A) 0.1 k/uL (0-0.2); Basophils % (A) 0 %; Eosinophils # (A) 0.3 k/uL (0-0.7); Eosinophils % (A) 2 %; HCT 38.1 % (34.0-46.0); HGB 13.6 gm/dL (11.4-16.0); Lymphocytes # (A) 2.2 k/uL (1.0-4.8); Lymphocytes % (A) 15 %; MCH 31.8 pg (25.0-35.0); MCHC 35.6 g/dL (31.0-37.0); MCV 89.2 fL (80.0-100.0); Mean Platelet Volume 8.2; Monocytes # (A) 0.8 k/uL (0-1.0); Monocytes % (A) 5 %; Neutrophils % (A) 77 %; Platelet Count 269 k/uL (150-450); RBC 4.27 m/uL (3.80-5.40); RDW 12.3 % (11.5-15.5); WBC 14.4 k/uL (3.8-10.6)
[2020-07-19 02:19] LABS: Partial Thromboplastin Time 22.2 sec (22.0-30.0); Prothrombin Time 10.4 sec (9.0-12.0)
[2020-07-19 02:21] LABS: ALT 29 U/L (4-34); AST 29 U/L (14-36); African American GFR (CKD) >90 (>60 ml/min/1.73 sqM); Albumin 3.9 g/dL (3.5-5.0); Alkaline Phosphatase 54 U/L (38-126); Anion Gap 7 mmol/L; Blood Urea Nitrogen 14 mg/dL (7-17); Carbon Dioxide 24 mmol/L (22-30); Chloride 107 mmol/L (98-107); Glucose 111 mg/dL (74-99); Non-African American GFR(CKD) 83 (>60 ml/min/1.73 sqM); Sodium 138 mmol/L (137-145); Total Bilirubin 0.4 mg/dL (0.2-1.3); Total Protein 6.9 g/dL (6.3-8.2)
[2020-07-19 02:43] VITALS: RESP 18
[2020-07-19 03:46] VITALS: BP 134/96; PULSE 102
== END 2020-07-19 03:46 | disposition home or self-care (01) ==
LOC: EC 01:09
DX: R00.2 Palpitations (principal); R55 Syncope and collapse
CPT/HCPCS: 36415; 71046; 80053; 84484; 85025; 85610; 85730; 93005; 96360; 99285

== ENCOUNTER → 2020-07-29 | Outpatient (CLI) | payer OTHER | END | disposition home or self-care (01) | LOC: RADMRIMAIN 20:46 | PROVIDERS: ATTEND Nurse Practitioner Family | DX: Z53.9 Procedure and treatment not carried out, unspecified reason (principal) ==

== ENCOUNTER 2020-12-03 22:38 | Emergency (ER) | payer OTHER ==
[2020-12-03 23:45] LABS: Appearance,Urine Clear (Clear); Bilirubin,Urine Negative (Negative); Blood,Urine Negative (Negative); Color,Urine Yellow; Glucose,Urine (UA) Negative (Negative); Ketones,Urine Negative (Negative); Leukocyte Esterase,Urine Negative (Negative); Nitrite,Urine Negative (Negative); PH, Urine 5.5 (5.0-8.0); Protein,Urine Negative (Negative); Urobilinogen,Urine <2.0 mg/dL (<2.0)
--- NOTE | 2020-12-03 23:49 | XR ---
EXAMINATION TYPE: XR chest 2V DATE OF EXAM: 12/03/2020 COMPARISON: 07/11/2020 HISTORY: Cough TECHNIQUE: 2 views FINDINGS: Heart and mediastinum are normal. Lungs are clear. Diaphragm is normal. Bony thorax appears normal. IMPRESSION: Normal chest. No change.
--- NOTE | 2020-12-03 23:52 | ED ---
SOB HPI - General Chief Complaint: Shortness of Breath Stated Complaint: Chest Pain Time Seen by Provider: 12/03/20 23:04 Source: patient Mode of arrival: ambulatory Limitations: no limitations - History of Present Illness Initial Comments: Patient is a 34-year-old female presenting to emergency Department with complaints of shortness of breath, cough that started yesterday. She states her daughter and mother were both recently diagnosed with Covid. She is unvaccinated. She started yesterday with symptoms of body aches, congestion, cough. She states today she felt a little shortness of breath and some chest tightness after she was coughing and got concerned. She also complains of some mild dysuria. She denies any nausea or vomiting, no abdominal pain. She has been taking Tylenol and vitamins. She has had no fevers. She denies being . Denies history of asthma, she is a nonsmoker. Takes no medications, except for occasional medicine for anxiety. She denies any recent travel, no lower leg pain. She has no further complaints. - Related Data Home Medications Medication Instructions Recorded Confirmed Norethindrone [Nay] 0.35 mg PO DAILY 12/03/20 12/03/20 Allergies Allergy/AdvReac Type Severity Reaction Status Date / Time Cephalosporins Allergy Unknown Verified 12/03/20 23:21 Childhood Penicillins Allergy Unknown Verified 12/03/20 23:21 Childhood ketorolac [From Toradol] AdvReac Rapid Verified 12/03/20 23:21 Heart Rate Review of Systems ROS Statement: Those systems with pertinent positive or pertinent negative responses have been documented in the HPI. ROS Other: All systems not noted in ROS Statement are negative. Past Medical History Additional Past Medical History / Comment(s): Pt states she has "one small kidney" History of Any Multi-Drug Resistant Organisms: None Reported Past Surgical History: Section, Orthopedic Surgery Additional Past Surgical History / Comment(s): right femur surgery d/t fracture, renal stent at the age of 6 yrs-cannot recall laterality. Additional Past Anesthesia/Blood Transfusion Reaction / Comment(s): Woke during renal stenting at the age of 6 yrs, past "anesthesia aggression" when waking from surgery. Past Psychological History: No Psychological Hx Reported Smoking Status: Never smoker Past Alcohol Use History: None Reported Past Drug Use History: None Reported - Past Family History Mother Family Medical History: No Reported History Additional Family Medical History / Comment(s): Mother is healthy Father History Unknown: Yes General Exam - General Exam Comments Initial Comments: GENERAL: Patient is well-developed and well-nourished. Patient is nontoxic and in no acute distress. HEAD: Atraumatic, normocephalic. EYES: Pupils equal round and reactive to light, extraocular movements intact, sclera anicteric, conjunctiva are normal. Eyelids were unremarkable. ENT: TMs normal, nares patent, oropharynx clear without exudates. Moist mucous membranes. NECK: Normal range of motion, supple without lymphadenopathy or JVD. LUNGS: Unlabored respirations. Breath sounds clear to auscultation bilaterally and equal. No wheezes rales or rhonchi. HEART: Slightly tachycardia rate and rhythm without murmurs, rubs or gallops. ABDOMEN: Soft, nontender, normoactive bowel sounds. No guarding, no rebound. No masses appreciated. : Deferred MUSCULOSKELETAL: Normal extremities with adequate strength and normal range of motion, no pitting or edema. No clubbing or cyanosis. NEUROLOGICAL: Patient is alert and oriented x 3. SKIN: Warm, Dry, normal turgor, no rashes or lesions noted. Limitations: no limitations Course Vital Signs 12/03/20 12/04/20 12/04/20 22:44 01:34 01:56 Temperature 98.8 F 98.6 F Pulse Rate 114 H 101 H 113 H Respiratory 19 16 18 Rate Blood Pressure 139/92 125/88 116/89 O2 Sat by Pulse 98 98 96 Oximetry 12/04/20 02:00 Temperature Pulse Rate 100 Respiratory 18 Rate Blood Pressure 107/97 O2 Sat by Pulse 96 Oximetry Medical Decision Making - Medical Decision Making Patient is a 34-year-old female here with cough, mild shortness of breath and body aches yesterday. Her daughter and mother both recent test positive for Covid. She is unvaccinated from Covid. No fevers. Her EKG shows sinus tach otherwise normal. Chest x-ray shows no acute process, urine is normal, rapid Covid is positive. Patient does meet criteria for monoclonal antibodies, she did agree to this. Patient was given antibodies, no acute side effect. Patient stable for discharge. Recommended continue to treat her symptoms at home with Tylenol or Motrin as indicated. She can follow up with her PCP. Return parameters were discussed with parents verbalized understanding. Discussed with Dr. Coyle. - Lab Data Lab Results 12/03/20 12/03/20 12/03/20 Range/Units 23:23 23:23 23:23 Urine Color Yellow Urine Appearance Clear (Clear) Urine pH 5.5 (5.0-8.0) Ur Specific [place] 1.020 (1.001-1.035) Urine Protein Negative (Negative) Urine Glucose (UA) Negative (Negative) Urine Ketones Negative (Negative) Urine Blood Negative (Negative) Urine Nitrite Negative (Negative) Urine Bilirubin Negative (Negative) Urine Urobilinogen <2.0 (<2.0) mg/dL Ur Leukocyte Esterase Negative (Negative) Urine HCG, Qual Not Detected (Not Detectd) Coronavirus (PCR) Detected A (Not Detectd) - EKG Data EKG Comments: Sinus tach, otherwise normal ECG, no signs of acute segment changes. Ventricular rate 115, [place] interval 114, QT 314. Disposition Clinical Impression: COVID-19, Viral illness Disposition: HOME SELF-CARE Condition: Stable Instructions (If sedation given, give patient instructions): Coronavirus Disease 2019 (COVID-19) Additional Instructions: Please return to the Emergency Department if symptoms worsen or any other concerns. Continue with either Tylenol and/or Motrin for your symptoms and fever control. Continue with your vitamins. Follow-up with your primary as needed. Is patient prescribed a controlled substance at d/c from ED?: No Referrals: Keenan Patterson DO [Primary Care Provider] - 1-2 days
[2020-12-04] MEDS ORDERED: SODIUM CHLORIDE 0.9% 50 ML IVPB ONE (00:30)
[2020-12-04] MEDS ORDERED: CASIRIVIMAB (REGN10933) (EUA) 600 MG, IMDEVIMAB (REGN10987) (EUA) 600 MG in SODIUM CHLO... IVPB ONE (00:30)
[2020-12-04 01:59] VITALS: TEMP 98.6
[2020-12-04 03:12] VITALS: BP 115/86; PULSE 115; RESP 20
== END 2020-12-04 03:12 | disposition home or self-care (01) ==
LOC: EC 22:38
DX: U07.1 COVID-19 (principal); Z88.0 Allergy status to penicillin; Z88.1 Allergy status to other antibiotic agents
CPT/HCPCS: 71046; 81003; 81025; 87635; 93005; 96365; 99285

== ENCOUNTER → 2021-09-16 | Outpatient (CLI) | payer OTHER ==
--- NOTE | 2021-09-16 10:31 | US ---
EXAMINATION TYPE: US pelvic complete DATE OF EXAM: 09/16/2021 COMPARISON: NONE CLINICAL HISTORY: E28.2 POLYCYSTIC OVARIAN SYNDROME. PCOS- check for ovarian cysts. TECHNIQUE: Transabdominal (TA). Transabdominal sonographic images of the pelvis were acquired. Date of LMP: 08/06/2021, EXAM MEASUREMENTS: Uterus: 8.0 x 4.2 x 3.5 cm Endometrial Stripe: 0.3 cm Right Ovary: 3.6 x 2.0 x 2.1 cm Left Ovary: 3.0 x 1.8 x 2.2 cm 1. Uterus: Anteverted wnl 2. Endometrium: wnl 3. Right Ovary: follicles seen 4. Left Ovary: follicles seen 5. Bilateral Adnexa: wnl 6. Posterior cul-de-sac: no free fluid IMPRESSION: 1. Unremarkable pelvic ultrasound.
== END | disposition home or self-care (01) ==
LOC: RADUSWWP 06:53
PROVIDERS: ATTEND Obstetrics & Gynecology
DX: E28.2 Polycystic ovarian syndrome (principal)
CPT/HCPCS: 76856

== ENCOUNTER 2023-06-20 00:06 | Emergency (ER) | payer OTHER ==
[2023-06-20 00:58] VITALS: TEMP 98.2
[2023-06-20] MEDS: SODIUM CHLORIDE 0.9% 1,000 ML IV ONE (01:40)
[2023-06-20] MEDS: ONDANSETRON 4 MG/2 ML VIAL IVP STA (01:42)
--- NOTE | 2023-06-20 01:42 | ED ---
Abdominal Pain HPI - General Chief Complaint: Abdominal Pain Stated Complaint: Kidney Pain Time Seen by Provider: 06/20/23 00:46 Source: patient Mode of arrival: ambulatory Limitations: no limitations - History of Present Illness Initial Comments: 37-year-old female presenting with chief complaint of back pain. Patient states last 2 days she has been experiencing flank pain. This tends to occur in the evening. She states that she does have some radiation to the abdomen. This started when the patient started taking a new diet pill, Orlistat. With these episodes of pain she also admits to chills nausea and vomiting. No chest pain or difficulty breathing. No diarrhea. No fevers. No dysuria, hematuria, urgency, frequency. Patient does not take any other medications. - Related Data Home Medications Medication Instructions Recorded Confirmed Norethindrone [Nay] 0.35 mg PO DAILY 12/03/20 12/03/20 Previous Rx's Medication Instructions Recorded Cyclobenzaprine [Flexeril] 10 mg PO TID PRN #15 tab 06/20/23 Ondansetron Odt [Zofran Odt] 4 mg PO Q8HR PRN #20 tab 06/20/23 Allergies Allergy/AdvReac Type Severity Reaction Status Date / Time Cephalosporins Allergy Unknown Verified 06/20/23 00:37 Childhood Penicillins Allergy Unknown Verified 06/20/23 00:37 Childhood ketorolac [From Toradol] AdvReac Rapid Verified 06/20/23 00:37 Heart Rate Review of Systems ROS Statement: Those systems with pertinent positive or pertinent negative responses have been documented in the HPI. ROS Other: All systems not noted in ROS Statement are negative. Past Medical History Additional Past Medical History / Comment(s): Pt states she has "one small kidney" History of Any Multi-Drug Resistant Organisms: None Reported Past Surgical History: Appendectomy, Section, Orthopedic Surgery Additional Past Surgical History / Comment(s): right femur surgery d/t fracture, renal stent at the age of 6 yrs-cannot recall laterality. Additional Past Anesthesia/Blood Transfusion Reaction / Comment(s): Woke during renal stenting at the age of 6 yrs, past "anesthesia aggression" when waking from surgery. Past Psychological History: No Psychological Hx Reported Smoking Status: Never smoker Past Alcohol Use History: None Reported Past Drug Use History: None Reported - Past Family History Mother Family Medical History: No Reported History Additional Family Medical History / Comment(s): Mother is healthy Father History Unknown: Yes General Exam Limitations: no limitations General appearance: alert, in no apparent distress Head exam: Present: atraumatic, normocephalic Eye exam: Present: normal appearance Neck exam: Present: normal inspection Respiratory exam: Present: normal lung sounds bilaterally. Absent: respiratory distress, wheezes, rales, rhonchi, stridor Cardiovascular Exam: Present: regular rate, normal rhythm, normal heart sounds. Absent: systolic murmur, diastolic murmur, rubs, gallop, clicks Back exam: Present: normal inspection, tenderness, muscle spasm Neurological exam: Present: alert, oriented X3 Psychiatric exam: Present: normal affect, normal mood Skin exam: Present: warm, dry Course Vital Signs 06/20/23 00:29 Temperature 98.2 F Pulse Rate 99 Respiratory 22 Rate Blood Pressure 128/79 O2 Sat by Pulse 99 Oximetry Medical Decision Making - Medical Decision Making Was pt. sent in by a medical professional or institution (, PA, MANAGER RELATIONSHIP, urgent care, hospital, or long term...) When possible be specific @ -No Did you speak to anyone other than the patient for history (EMS, parent, family, police, friend...)? What history was obtained from this source @ -No Did you review nursing and triage notes (agree or disagree)? Why? @ -I reviewed and agree with nursing and triage notes Were old charts reviewed (outside hosp., previous admission, EMS record, old EKG, old radiological studies, urgent care reports/EKG's, long term records)? Report findings @ -No old charts were reviewed Differential Diagnosis (chest pain, altered mental status, abdominal pain women, abdominal pain men, vaginal bleeding, weakness, fever, dyspnea, syncope, headache, dizziness, GI bleed, back pain, seizure, CVA, palpatations, mental health, musculoskeletal)? @ - MDM Differential Back Pain: Strain, zoster, cauda equina syndrome, epidural abscess, vertebral osteom yelitis, discitis, fracture, subluxation, disc herniation, DJD, spinal stenosis, dissection, AAA, pancreatitis, peptic ulcer disease, pyelonephritis, kidney stone this is not meant to be an all-inclusive list. EKG interpreted by me (3pts min.). @ -As above X-rays interpreted by me (1pt min.). @ -None done CT interpreted by me (1pt min.). @ -None done U/S interpreted by me (1pt. min.). @ -None done What testing was considered but not performed or refused? (CT, X-rays, U/S, labs)? Why? @ -None What meds were considered but not given or refused? Why? @ -None Did you discuss the management of the patient with other professionals (professionals i.e. , PA, MANAGER RELATIONSHIP, lab, RT, psych nurse, social service agency director, direct of real estate, teacher, real estate utilization officer, protective services case worker)? Give summary @ -No Was smoking cessation discussed for >3mins.? @ -No Was critical care preformed (if so, how long)? @ -No Were there social determinants of health that impacted care today? How? (Homelessness, low income, unemployed, alcoholism, drug addiction, transportation, low edu. Level, literacy, decrease access to med. care, [facility], rehab)? @ -No Was there de-escalation of care discussed even if they declined (Discuss DNR or withdrawal of care, Hospice)? DNR status @ -No What co-morbidities impacted this encounter? (DM, HTN, Smoking, COPD, CAD, Cancer, CVA, ARF, Chemo, Hep., AIDS, mental health diagnosis, sleep apnea, mor bid obesity)? @ -None Was patient admitted / discharged? Hospital course, mention meds given and [place], prescriptions, significant lab abnormalities, going to OR and other pertinent info. @ -37-year-old female presenting with chief complaint of bilateral flank pain. This felt like it tightening of the muscles in the mid back. This occurred this evening after she took diet pills. This has been ongoing the last 2 nights since starting the diet pill. Admits to nausea and vomiting from the pain. History and physical exam were conducted. WBC 11.9. BUN 19, patient is receiving IV fluids. Creatinine and BUN are WNL. Urine shows no infectious process or bleeding. She reports improvement in her symptoms after morphine, Zofran, and fluids. Pain is likely musculoskeletal in nature. Patient has a follow-up appointment with her PCP on Monday. Discharged home. Follow-up with PCP. Report back to ER with any new or worsening symptoms. Discussed return parameters and answered all questions. Patient conveyed verbal understanding and agreed to the plan. I discussed this case in detail with my attending Dr. Banegas Undiagnosed new problem with uncertain prognosis? @ -No Drug Therapy requiring intensive monitoring for toxicity (Heparin, Nitro, Insulin, Cardizem)? @ -No Were any procedures done? @ -No Diagnosis/symptom? @ -Muscle spasm Acute, or Chronic, or Acute on Chronic? @ -Acute Uncomplicated (without systemic symptoms) or Complicated (systemic symptoms)? @ -Uncomplicated Side effects of treatment? @ -No Exacerbation, Progression, or Severe Exacerbation? @ -No Poses a threat to life or bodily function? How? (Chest pain, [place], [place], pneumonia, PE, COPD, DKA, ARF, appy, cholecystitis, CVA, Diverticulitis, Homicidal, Suicidal, threat to staff... and all critical care pts) @ -No - Lab Data Result diagrams: 06/20/23 01:06/20/23 01: Lab Results 06/20/23 06/20/23 06/20/23 Range/Units 01:28 01: 01:28 WBC 11.9 H (3.8-10.6) k/uL RBC 4.07 (3.80-5.40) m/uL Hgb 14.1 (11.4-16.0) gm/dL Hct 35.9 (34.0-46.0) % MCV 88.2 (80.0-100.0) fL MCH 34.5 (25.0-35.0) pg MCHC 39.1 H (31.0-37.0) g/dL RDW 12.6 (11.5-15.5) % Plt Count 285 (150-450) k/uL MPV 9.0 Neutrophils % 70 % Lymphocytes % 21 % Monocytes % 6 % Eosinophils % 1 % Basophils % 1 % Neutrophils # 8.3 H (1.3-7.7) k/uL Lymphocytes # 2.5 (1.0-4.8) k/uL Monocytes # 0.7 (0-1.0) k/uL Eosinophils # 0.2 (0-0.7) k/uL Basophils # 0.1 (0-0.2) k/uL Sodium 140 (137-145) mmol/L Potassium 4.0 (3.5-5.1) mmol/L Chloride 108 H (98-107) mmol/L Carbon Dioxide 24 (22-30) mmol/L Anion Gap 8 mmol/L BUN 19 H (7-17) mg/dL Creatinine 0.91 (0.52-1.04) mg/dL Est GFR (CKD-EPI)AfAm >90 (>60 ml/min/1.73 sqM) Est GFR (CKD-EPI)NonAf 82 (>60 ml/min/1.73 sqM) Glucose 106 H (74-99) mg/dL Calcium 9.4 (8.4-10.2) mg/dL Total Bilirubin 0.4 (0.2-1.3) mg/dL AST 29 (14-36) U/L ALT 43 H (4-34) U/L Alkaline Phosphatase 72 (38-126) U/L Total Protein 7.4 (6.3-8.2) g/dL Albumin 4.1 (3.5-5.0) g/dL Amylase 76 (30-110) U/L Lipase 97 (23-300) U/L Urine Color Light Yellow Urine Appearance Clear (Clear) Urine pH 5.5 (5.0-8.0) Ur Specific [place] 1.023 (1.001-1.035) Urine Protein Negative (Negative) Urine Glucose (UA) Negative (Negative) Urine Ketones Negative (Negative) Urine Blood Trace H (Negative) Urine Nitrite Negative (Negative) Urine Bilirubin Negative (Negative) Urine Urobilinogen <2.0 (<2.0) mg/dL Ur Leukocyte Esterase Negative (Negative) Urine RBC 1 (0-5) /hpf Urine WBC 2 (0-5) /hpf Ur Squamous Epith Cells 1 (0-4) /hpf Urine Mucus Rare H (None) /hpf Disposition Clinical Impression: Muscle spasm Disposition: HOME SELF-CARE Condition: Good Instructions (If sedation given, give patient instructions): Flank Pain (ED), Muscle Spasm (ED) Additional Instructions: Follow-up with PCP at scheduled appointment on Monday. Report back to ER with any new or worsening symptoms. Discontinue your diet pills until following up with your PCP. Prescriptions: Cyclobenzaprine [Flexeril] 10 mg PO TID PRN #15 tab PRN Reason: Spasms Ondansetron Odt [Zofran Odt] 4 mg PO Q8HR PRN #20 tab PRN Reason: Nausea Is patient prescribed a controlled substance at d/c from ED?: No Referrals: Keenan Patterson DO [Primary Care Provider] - 1-2 days Time of Disposition: 02:43
[2023-06-20] MEDS: MORPHINE SULFATE 4 MG/ML SYRINGE IVP STA (01:43)
[2023-06-20 02:08] LABS: Basophils # (A) 0.1 k/uL (0-0.2); Basophils % (A) 1 %; Eosinophils # (A) 0.2 k/uL (0-0.7); Eosinophils % (A) 1 %; HCT 35.9 % (34.0-46.0); HGB 14.1 gm/dL (11.4-16.0); Lymphocytes # (A) 2.5 k/uL (1.0-4.8); Lymphocytes % (A) 21 %; MCH 34.5 pg (25.0-35.0); MCV 88.2 fL (80.0-100.0); Monocytes # (A) 0.7 k/uL (0-1.0); Monocytes % (A) 6 %; Neutrophils # (A) 8.3 k/uL (1.3-7.7); Neutrophils % (A) 70 %; Platelet Count 285 k/uL (150-450); RBC 4.07 m/uL (3.80-5.40); RDW 12.6 % (11.5-15.5); WBC 11.9 k/uL (3.8-10.6)
[2023-06-20 02:12] LABS: Appearance,Urine Clear (Clear); Bilirubin,Urine Negative (Negative); Blood,Urine Trace (Negative); Color,Urine Light Yellow; Glucose,Urine (UA) Negative (Negative); Ketones,Urine Negative (Negative); Leukocyte Esterase,Urine Negative (Negative); MCHC 39.1 g/dL (31.0-37.0); Mucus,Urine Rare /hpf; Nitrite,Urine Negative (Negative); PH, Urine 5.5 (5.0-8.0); Protein,Urine Negative (Negative); RBC,Urine 1 /hpf (0-5); Specific Gravity,Urine 1.023 (1.001-1.035); Squamous Epithelial Cell,Urine 1 /hpf (0-4); Urobilinogen,Urine <2.0 mg/dL (<2.0); WBC,Urine 2 /hpf (0-5)
[2023-06-20 02:18] LABS: ALT 43 U/L (4-34); AST 29 U/L (14-36); African American GFR (CKD) >90 (>60 ml/min/1.73 sqM); Albumin 4.1 g/dL (3.5-5.0); Alkaline Phosphatase 72 U/L (38-126); Amylase 76 U/L (30-110); Anion Gap 8 mmol/L; Blood Urea Nitrogen 19 mg/dL (7-17); Calcium 9.4 mg/dL (8.4-10.2); Carbon Dioxide 24 mmol/L (22-30); Chloride 108 mmol/L (98-107); Glucose 106 mg/dL (74-99); Lipase 97 U/L (23-300); Non-African American GFR(CKD) 82 (>60 ml/min/1.73 sqM); Sodium 140 mmol/L (137-145); Total Bilirubin 0.4 mg/dL (0.2-1.3); Total Protein 7.4 g/dL (6.3-8.2)
[2023-06-20 03:03] VITALS: BP 106/71; PULSE 80; RESP 16
== END 2023-06-20 02:57 | disposition home or self-care (01) ==
LOC: EC 00:06
DX: M62.830 Muscle spasm of back (principal); Z88.0 Allergy status to penicillin; Z88.1 Allergy status to other antibiotic agents; Z88.6 Allergy status to analgesic agent
CPT/HCPCS: 36415; 80053; 82150; 83690; 85025; 81001; 99284; 96374; 96375; 96361; J2270; J2405

== ENCOUNTER 2024-01-08 00:36 | Emergency (ER) | payer OTHER ==
[2024-01-08 00:55] VITALS: TEMP 97.4
--- NOTE | 2024-01-08 01:38 | ED ---
Abdominal Pain HPI - General Source: patient, RN notes reviewed Mode of arrival: ambulatory Limitations: no limitations <Catrachita Gabriel - Last Filed: 01/08/24 04:08> <Lynda Garner - Last Filed: 01/09/24 22:30> - General Chief Complaint: Abdominal Pain Stated Complaint: ABD Pain Time Seen by Provider: 01/08/24 01:35 - History of Present Illness Initial Comments: 38 year old female presenting to ER with a chief complaint of abdominal pain. Patient patient reports pain started on 01-03-2024. Patient was seen by [facility] on 01-05-2024 and diagnosed with diverticulitis. Patient was started on ciprofloxacin and Flagyl and was admitted. Patient received 1 dose of each antibiotic and was seen by Dr. Barrera. Patient states she started to take prescribed outpatient antibiotics, Cipro and Flagyl, yesterday. She was discharged on 01-06-2024. Patient states tonight while sleeping she woke up in a panic with extreme left upper quadrant abdominal pain. She does report chills and decreased appetite. No fevers. Patient also admits to diarrhea and nausea. Denies any hematochezia or melena. No history of diverticulitis. Patient denies any other complaints at this time. (Catrachita Gabriel) - Related Data Home Medications Medication Instructions Recorded Confirmed Norethindrone [Nay] 0.35 mg PO DAILY 12/03/20 12/03/20 Previous Rx's Medication Instructions Recorded Cyclobenzaprine [Flexeril] 10 mg PO TID PRN #15 tab 06/20/23 Ondansetron Odt [Zofran Odt] 4 mg PO Q8HR PRN #20 tab 06/20/23 Allergies Allergy/AdvReac Type Severity Reaction Status Date / Time Cephalosporins Allergy Unknown Verified 01/08/24 00:50 Childhood Penicillins Allergy Unknown Verified 01/08/24 00:50 Childhood ketorolac [From Toradol] AdvReac Rapid Verified 01/08/24 00:50 Heart Rate Review of Systems ROS Other: All systems not noted in ROS Statement are negative. <Catrachita Gabriel - Last Filed: 01/08/24 04:08> ROS Other: All systems not noted in ROS Statement are negative. <Lynda Garner - Last Filed: 01/09/24 22:30> ROS Statement: Those systems with pertinent positive or pertinent negative responses have been documented in the HPI. Past Medical History Additional Past Medical History / Comment(s): Pt states she has "one small kidney", PCOS History of Any Multi-Drug Resistant Organisms: None Reported Past Surgical History: Appendectomy, Section, Orthopedic Surgery Additional Past Surgical History / Comment(s): right femur surgery d/t fracture, renal stent at the age of 6 yrs-cannot recall laterality. Additional Past Anesthesia/Blood Transfusion Reaction / Comment(s): Woke during renal stenting at the age of 6 yrs, past "anesthesia aggression" when waking fr om surgery. Past Psychological History: Anxiety, Panic Disorder, PTSD Smoking Status: Never smoker Past Alcohol Use History: None Reported Past Drug Use History: None Reported - Past Family History Mother Family Medical History: No Reported History Additional Family Medical History / Comment(s): Mother is healthy Father History Unknown: Yes <Catrachita Gabriel - Last Filed: 01/08/24 04:08> General Exam Limitations: no limitations General appearance: alert, in no apparent distress Respiratory exam: Present: normal lung sounds bilaterally. Absent: respiratory distress, wheezes, rales, rhonchi, stridor Cardiovascular Exam: Present: regular rate, normal rhythm, normal heart sounds. Absent: systolic murmur, diastolic murmur, rubs, gallop, clicks GI/Abdominal exam: Present: soft, tenderness (LUQ ), normal bowel sounds Neurological exam: Present: alert, oriented X3, CN II-XII intact Skin exam: Present: warm, dry, intact, normal color. Absent: rash <Catrachita Gabriel - Last Filed: 01/08/24 04:08> Course <Catrachita Gabriel - Last Filed: 01/08/24 04:08> Vital Signs 01/08/24 01/08/24 00:50 05:27 Temperature 97.4 F L Pulse Rate 98 80 Respiratory 20 18 Rate Blood Pressure 144/87 107/69 O2 Sat by Pulse 98 100 Oximetry - Reevaluation(s) Reevaluation #1: 01/08/24 04:09 Evaluated. Vitals remained stable. Patient reporting pain a 4 out of 10. No signs of acute distress. (Catrachita Gabriel) Medical Decision Making - Lab Data Result diagrams: 01/08/24 02:34 01/08/24 02:34 <Catrachita Gabriel - Last Filed: 01/08/24 04:08> - Lab Data Result diagrams: 01/08/24 02:34 01/08/24 02:34 <Lynda Garner [place] - Last Filed: 01/09/24 22:30> - Medical Decision Making Was pt. sent in by a medical professional or institution (, PA, MACHINE DESIGN ENGINEER, urgent care, hospital, or skilled nursing...) When possible be specific @ -[No] Did you speak to anyone other than the patient for history (EMS, parent, family, police, friend...)? What history was obtained from this source @ -[No] Did you review nursing and triage notes (agree or disagree)? Why? @ -[I reviewed and agree with nursing and triage notes] Were old charts reviewed (outside hosp., previous admission, EMS record, old EKG, old radiological studies, urgent care reports/EKG's, skilled nursing records)? Report findings @ -[No old charts were reviewed] Differential Diagnosis (chest pain, altered mental status, abdominal pain women, abdominal pain men, vaginal bleeding, weakness, fever, dyspnea, syncope, headache, dizziness, GI bleed, back pain, seizure, CVA, palpatations, mental health, musculoskeletal)? @ -Differential Abdominal Pain Women: Appendicitis, Cholecystitis, div erticulosis, ischemic bowel, pancreatitis, hepatitis, UTI, gastroenteritis, AAA, incarcerated hernia, bowel obstruction, constipation, inflammatory bowel, hepatitis, peptic ulcer disease, splenic infarction, perforated viscus, vulvitis, ovarian torsion, PID, kidney stone, placenta abruption, this is not meant to be an all-inclusive list EKG interpreted by me (3pts min.). @ -None done X-rays interpreted by me (1pt min.). @ -[None done] CT interpreted by me (1pt min.). @ -Pending U/S interpreted by me (1pt. min.). @ -[None done] What testing was considered but not performed or refused? (CT, X-rays, U/S, labs)? Why? @ -[None] What meds were considered but not given or refused? Why? @ -[None] Did you discuss the management of the patient with other professionals (professionals i.e. DrAlexandre, PA, MACHINE DESIGN ENGINEER, lab, RT, psych nurse, transition social worker, diabetes physician, teacher, second officer, case management manager)? Give summary @ -[No] Was smoking cessation discussed for >3mins.? @ -[No] Was critical care preformed (if so, how long)? @ -[No] Were there social determinants of health that impacted care today? How? (Ho melessness, low income, unemployed, alcoholism, drug addiction, transportation, low edu. Level, literacy, decrease access to med. care, half-way, rehab)? @ -[No] Was there de-escalation of care discussed even if they declined (Discuss DNR or withdrawal of care, Hospice)? DNR status @ -[No] What co-morbidities impacted this encounter? (DM, HTN, Smoking, COPD, CAD, Cancer, CVA, ARF, Chemo, Hep., AIDS, mental health diagnosis, sleep apnea, morbid obesity)? @ -[None] Was patient admitted / discharged? Hospital course, mention meds given and route, prescriptions, significant lab abnormalities, going to OR and other pertinent info. @ -[38-year-old female presenting to the ER with a chief complaint of abdominal pain. History and physical exam. Vitals stable. Patient in no signs of acute distress. Focal abdominal tenderness to left upper quadrant. No rebound or guarding. No bowel sounds. Laboratory studies obtained showing a mild leukocytosis of 11 point 6 with a left shift. Sodium 136, potassium 4.3, chloride 102, carbon oxide 28. Urine analysis showed mild signs of dehydration with trace ketones. No evidence of infection. CT abdomen pelvis obtained and pending. Received IV fluids, Zofran and p.o. Tylenol for symptom control in the ER. Patient signed out to Dr. Garner pending CT results and disposition. ] (Catrachita Gabriel) Was patient admitted / discharged? Hospital course, mention meds given and route, prescriptions, significant lab abnormalities, going to OR and other pertinent info. @ -Patient signed out to me pending CT read. CT negative for acute process. Discussed this with the patient and she felt comfortable going home. She is instructed to follow-up with her surgeon and return for any new or worsening symptoms. CT does not demonstrate diverticulitis at this time. She is to continue the course of antibiotics. Eat before she takes them as the antibiotics may be upsetting her stomach. Return for any new or worsening symptoms. Patient agreeable to plan was discharged in stable condition Undiagnosed new problem with uncertain prognosis? @ -No Drug Therapy requiring intensive monitoring for toxicity (Heparin, Nitro, Insulin, Cardizem)? @ -No Were any procedures done? @ -No Diagnosis/symptom? @ -Acute abdominal pain Acute, or Chronic, or Acute on Chronic? @ -Acute Uncomplicated (without systemic symptoms) or Complicated (systemic symptoms)? @ -Complicated Side effects of treatment? @ -No Exacerbation, Progression, or Severe Exacerbation? @ -No Poses a threat to life or bodily function? How? (Chest pain, [place], [place], pneumonia, PE, COPD, DKA, ARF, appy, cholecystitis, CVA, Diverticulitis, Homicidal, Suicidal, threat to staff... and all critical care pts) @ -No (Lynda Garner) - Lab Data Lab Results 01/08/24 01/08/24 01/08/24 Range/Units 01:45 01:45 02:34 WBC 11.6 H (3.8-10.6) k/uL RBC 4.46 (3.80-5.40) m/uL Hgb 13.4 (11.4-16.0) gm/dL Hct 40.1 (34.0-46.0) % MCV 89.9 (80.0-100.0) fL MCH 30.0 (25.0-35.0) pg MCHC 33.4 (31.0-37.0) g/dL RDW 12.4 (11.5-15.5) % Plt Count 280 (150-450) k/uL MPV 8.8 Neutrophils % 71 % Lymphocytes % 19 % Monocytes % 6 % Eosinophils % 1 % Basophils % 1 % Neutrophils # 8.2 H (1.3-7.7) k/uL Lymphocytes # 2.2 (1.0-4.8) k/uL Monocytes # 0.7 (0-1.0) k/uL Eosinophils # 0.1 (0-0.7) k/uL Basophils # 0.1 (0-0.2) k/uL Sodium (137-145) mmol/L Potassium (3.5-5.1) mmol/L Chloride (98-107) mmol/L Carbon Dioxide (22-30) mmol/L Anion Gap mmol/L BUN (7-17) mg/dL Creatinine (0.52-1.04) mg/dL Est GFR (CKD-EPI)AfAm (>60 ml/min/1.73 sqM) Est GFR (CKD-EPI)NonAf (>60 ml/min/1.73 sqM) Glucose (74-99) mg/dL Plasma Lactic Acid Juve (0.7-2.0) mmol/L Calcium (8.4-10.2) mg/dL Total Bilirubin (0.2-1.3) mg/dL AST (14-36) U/L ALT (4-34) U/L Alkaline Phosphatase (38-126) U/L Total Protein (6.3-8.2) g/dL Albumin (3.5-5.0) g/dL Amylase (30-110) U/L Lipase (23-300) U/L Urine Color Yellow Urine Appearance Cloudy H (Clear) Urine pH 6.0 (5.0-8.0) Ur Specific [place] 1.022 (1.001-1.035) Urine Protein Negative (Negative) Urine Glucose (UA) Negative (Negative) Urine Ketones Trace H (Negative) Urine Blood Negative (Negative) Urine Nitrite Negative (Negative) Urine Bilirubin Negative (Negative) Urine Urobilinogen <2.0 (<2.0) mg/dL Ur Leukocyte Esterase Negative (Negative) Urine RBC <1 (0-5) /hpf Urine WBC <1 (0-5) /hpf Ur Squamous Epith Cells 8 H (0-4) /hpf Urine Mucus Occasional H (None) /hpf Urine HCG, Qual Not Detected (Not Detectd) 01/08/24 01/08/24 Range/Units 02:34 02:34 WBC (3.8-10.6) k/uL RBC (3.80-5.40) m/uL Hgb (11.4-16.0) gm/dL Hct (34.0-46.0) % MCV (80.0-100.0) fL MCH (25.0-35.0) pg MCHC (31.0-37.0) g/dL RDW (11.5-15.5) % Plt Count (150-450) k/uL MPV Neutrophils % % Lymphocytes % % Monocytes % % Eosinophils % % Basophils % % Neutrophils # (1.3-7.7) k/uL Lymphocytes # (1.0-4.8) k/uL Monocytes # (0-1.0) k/uL Eosinophils # (0-0.7) k/uL Basophils # (0-0.2) k/uL Sodium 136 L (137-145) mmol/L Potassium 4.3 (3.5-5.1) mmol/L Chloride 102 (98-107) mmol/L Carbon Dioxide 28 (22-30) mmol/L Anion Gap 6 mmol/L BUN 13 (7-17) mg/dL Creatinine 1.02 (0.52-1.04) mg/dL Est GFR (CKD-EPI)AfAm 82 (>60 ml/min/1.73 sqM) Est GFR (CKD-EPI)NonAf 71 (>60 ml/min/1.73 sqM) Glucose 105 H (74-99) mg/dL Plasma Lactic Acid Juve 1.1 (0.7-2.0) mmol/L Calcium 9.3 (8.4-10.2) mg/dL Total Bilirubin 0.6 (0.2-1.3) mg/dL AST 42 H (14-36) U/L ALT 71 H (4-34) U/L Alkaline Phosphatase 64 (38-126) U/L Total Protein 6.6 (6.3-8.2) g/dL Albumin 3.8 (3.5-5.0) g/dL Amylase 50 (30-110) U/L Lipase 71 (23-300) U/L Urine Color Urine Appearance (Clear) Urine pH (5.0-8.0) Ur Specific [place] (1.001-1.035) Urine Protein (Negative) Urine Glucose (UA) (Negative) Urine Ketones (Negative) Urine Blood (Negative) Urine Nitrite (Negative) Urine Bilirubin (Negative) Urine Urobilinogen (<2.0) mg/dL Ur Leukocyte Esterase (Negative) Urine RBC (0-5) /hpf Urine WBC (0-5) /hpf Ur Squamous Epith Cells (0-4) /hpf Urine Mucus (None) /hpf Urine HCG, Qual (Not Detectd) Disposition <Catrachita Gabriel - Last Filed: 01/08/24 04:08> Is patient prescribed a controlled substance at d/c from ED?: No Time of Disposition: 05:09 <Lynda Garner - Last Filed: 01/09/24 22:30> Clinical Impression: Abdominal pain Disposition: HOME SELF-CARE Condition: Stable Instructions (If sedation given, give patient instructions): Abdominal Pain (ED) Additional Instructions: It is okay to advance your diet. Eat before you take your antibiotics. Follow- up with your surgeon and return for any new or worsening symptoms Referrals: Keenan Patterson DO [Primary Care Provider] - 1-2 days
[2024-01-08 02:03] LABS: Appearance,Urine Cloudy (Clear); Bilirubin,Urine Negative (Negative); Blood,Urine Negative (Negative); Color,Urine Yellow; Glucose,Urine (UA) Negative (Negative); Ketones,Urine Trace (Negative); Leukocyte Esterase,Urine Negative (Negative); Mucus,Urine Occasional /hpf; Nitrite,Urine Negative (Negative); Protein,Urine Negative (Negative); RBC,Urine <1 /hpf (0-5); Specific Gravity,Urine 1.022 (1.001-1.035); Squamous Epithelial Cell,Urine 8 /hpf (0-4); Urobilinogen,Urine <2.0 mg/dL (<2.0); WBC,Urine <1 /hpf (0-5)
[2024-01-08 02:40] LABS: Basophils # (A) 0.1 k/uL (0-0.2); Basophils % (A) 1 %; Eosinophils # (A) 0.1 k/uL (0-0.7); Eosinophils % (A) 1 %; HCT 40.1 % (34.0-46.0); HGB 13.4 gm/dL (11.4-16.0); Lymphocytes # (A) 2.2 k/uL (1.0-4.8); Lymphocytes % (A) 19 %; MCHC 33.4 g/dL (31.0-37.0); MCV 89.9 fL (80.0-100.0); Mean Platelet Volume 8.8; Monocytes # (A) 0.7 k/uL (0-1.0); Monocytes % (A) 6 %; Neutrophils # (A) 8.2 k/uL (1.3-7.7); Neutrophils % (A) 71 %; Platelet Count 280 k/uL (150-450); RBC 4.46 m/uL (3.80-5.40); RDW 12.4 % (11.5-15.5); WBC 11.6 k/uL (3.8-10.6)
[2024-01-08] MEDS: SODIUM CHLORIDE 0.9% 1,000 ML IV STA (02:56)
[2024-01-08] MEDS: ONDANSETRON 4 MG/2 ML VIAL IVP STA (02:56)
[2024-01-08] MEDS: ACETAMINOPHEN TAB 325 MG TAB PO STA (02:58)
[2024-01-08 03:00] LABS: ALT 71 U/L (4-34); AST 42 U/L (14-36); African American GFR (CKD) 82 (>60 ml/min/1.73 sqM); Albumin 3.8 g/dL (3.5-5.0); Alkaline Phosphatase 64 U/L (38-126); Amylase 50 U/L (30-110); Anion Gap 6 mmol/L; Blood Urea Nitrogen 13 mg/dL (7-17); Calcium 9.3 mg/dL (8.4-10.2); Carbon Dioxide 28 mmol/L (22-30); Chloride 102 mmol/L (98-107); Glucose 105 mg/dL (74-99); Lipase 71 U/L (23-300); Non-African American GFR(CKD) 71 (>60 ml/min/1.73 sqM); Potassium 4.3 mmol/L (3.5-5.1); Sodium 136 mmol/L (137-145); Total Bilirubin 0.6 mg/dL (0.2-1.3); Total Protein 6.6 g/dL (6.3-8.2)
--- NOTE | 2024-01-08 04:22 | CT ---
EXAM: CT Abdomen and Pelvis With Intravenous Contrast CLINICAL HISTORY: ITS.REASON CT Reason: LUQ abd pain TECHNIQUE: Axial computed tomography images of the abdomen and pelvis with intravenous contrast. CTDI is 41.9 mGy and DLP is 2114.8 mGy-cm. This CT exam was performed using one or more of the following dose reduction techniques: automated exposure control, adjustment of the mA and/or kV according to patient size, and/or use of iterative reconstruction technique. COMPARISON: CT abdomen pelvis November 14, 2018. FINDINGS: Lung bases: Unremarkable. No mass. No consolidation. ABDOMEN: Liver: Hepatic steatosis. Gallbladder and bile ducts: Unremarkable. No calcified stones. No ductal dilation. Pancreas: Unremarkable. No mass. No ductal dilation. Spleen: Unremarkable. No splenomegaly. Adrenals: Unremarkable. No mass. Kidneys and ureters: Atrophy of the RIGHT kidney. No solid mass. No hydronephrosis. Stomach and bowel: Diverticulosis, without acute diverticulitis. No small bowel obstruction. No free intraperitoneal air. PELVIS: Appendix: Appendectomy. Bladder: Unremarkable. No mass. Reproductive: Unremarkable as visualized. ABDOMEN and PELVIS: Intraperitoneal space: Unremarkable. No free air. No significant fluid collection. Bones/joints: No acute fracture. No dislocation. Soft tissues: LEFT ovarian cyst measures 1.8 cm. Small fat-containing umbilical hernia. Vasculature: Unremarkable. No abdominal aortic aneurysm. Lymph nodes: Unremarkable. No enlarged lymph nodes. IMPRESSION: 1. Hepatic steatosis. 2. Diverticulosis, without acute diverticulitis. No small bowel obstruction. No free intraperitoneal air. 3. Appendectomy. 4. Atrophy of the RIGHT kidney.
[2024-01-08 05:28] VITALS: BP 107/69; PULSE 80; RESP 18
== END 2024-01-08 05:29 | disposition home or self-care (01) ==
LOC: EC 00:36
DX: R10.9 Unspecified abdominal pain
CPT/HCPCS: 36415; 74177; 80053; 81001; 81025; 82150; 83605; 83690; 85025

== ENCOUNTER 2024-03-16 23:30 | Emergency (ER) | payer OTHER ==
[2024-03-17 00:24] LABS: Appearance,Urine Clear (Clear); Bilirubin,Urine Negative (Negative); Blood,Urine Negative (Negative); Color,Urine Colorless; Glucose,Urine (UA) Negative (Negative); Ketones,Urine Negative (Negative); Leukocyte Esterase,Urine Negative (Negative); Nitrite,Urine Negative (Negative); PH, Urine 5.5 (5.0-8.0); Protein,Urine Negative (Negative); Specific Gravity,Urine 1.012 (1.001-1.035); Urobilinogen,Urine <2.0 mg/dL (<2.0)
--- NOTE | 2024-03-17 00:34 | XR ---
EXAMINATION TYPE: XR chest 2V DATE OF EXAM: 03/17/2024 CLINICAL HISTORY: Cough for 5 weeks. TECHNIQUE: Frontal and lateral views of the chest are obtained. COMPARISON: Chest x-ray December 03, 2020 FINDINGS: There is no suspicious new focal air space opacity, pleural effusion, or pneumothorax seen . The cardiac silhouette size remains within normal limits. The osseous structures are intact. IMPRESSION: No acute pulmonary infiltrate. No significant change from prior. [facility], , 03/17/2024 12:32 AM
--- NOTE | 2024-03-17 00:53 | ED ---
URI HPI - General Chief Complaint: Upper Respiratory Infection Stated Complaint: Cough, SOB Time Seen by Provider: 03/17/24 00:51 Source: patient, RN notes reviewed Mode of arrival: ambulatory Limitations: no limitations - History of Present Illness Initial Comments: 38 year old female presenting to the ER with a chief complaint of cough. Patient reports for the past 5 weeks she has been endorsing a harsh cough. She does report it is worse at night. She states the cough has made her start to urinate on herself due to bearing down. She also reports a sore chest due to coughing so hard and frequently. She has not been on any antibiotics or medications at this time for her symptoms. She did try OTC NyQuil for 5 days straight without improvement patient denies any fevers, chills, chest pain, shortness of breath, nausea, vomiting, abdominal pain, constipation/diarrhea or peripheral edema. - Related Data Home Medications Medication Instructions Recorded Confirmed Norethindrone [Nay] 0.35 mg PO DAILY 12/03/20 12/03/20 Previous Rx's Medication Instructions Recorded Cyclobenzaprine [Flexeril] 10 mg PO TID PRN #15 tab 06/20/23 Ondansetron Odt [Zofran Odt] 4 mg PO Q8HR PRN #20 tab 06/20/23 Azithromycin [Zithromax Z Pack] 0 tab PO DIRECTED #6 tab 03/17/24 Allergies Allergy/AdvReac Type Severity Reaction Status Date / Time Cephalosporins Allergy Unknown Verified 03/16/24 23:38 Childhood Penicillins Allergy Unknown Verified 03/16/24 23:38 Childhood ketorolac [From Toradol] AdvReac Rapid Verified 03/16/24 23:38 Heart Rate Review of Systems ROS Statement: Those systems with pertinent positive or pertinent negative responses have been documented in the HPI. ROS Other: All systems not noted in ROS Statement are negative. Past Medical History Additional Past Medical History / Comment(s): Pt states she has "one small kidney", PCOS History of Any Multi-Drug Resistant Organisms: None Reported Past Surgical History: Appendectomy, Section, Orthopedic Surgery Additional Past Surgical History / Comment(s): right femur surgery d/t fracture, renal stent at the age of 6 yrs-cannot recall laterality. Additional Past Anesthesia/Blood Transfusion Reaction / Comment(s): Woke during renal stenting at the age of 6 yrs, past "anesthesia aggression" when waking from surgery. Past Psychological History: Anxiety, Panic Disorder, PTSD Smoking Status: Never smoker Past Alcohol Use History: None Reported Past Drug Use History: None Reported - Past Family History Mother Family Medical History: No Reported History Additional Family Medical History / Comment(s): Mother is healthy Father History Unknown: Yes General Exam Limitations: no limitations General appearance: alert, in no apparent distress ENT exam: Present: normal exam, mucous membranes moist Respiratory exam: Present: normal lung sounds bilaterally. Absent: respiratory distress, wheezes, rales, rhonchi, stridor Cardiovascular Exam: Present: regular rate, normal rhythm, normal heart sounds. Absent: systolic murmur, diastolic murmur, rubs, gallop, clicks Neurological exam: Present: alert, oriented X3, CN II-XII intact Skin exam: Present: warm, dry, intact, normal color. Absent: rash Course Vital Signs 03/16/24 03/17/24 03/17/24 23:35 01:00 01:05 Temperature 98 F 98.1 F Pulse Rate 86 80 Respiratory 20 19 19 Rate Blood Pressure 160/89 114/59 O2 Sat by Pulse 97 100 Oximetry 03/17/24 03/17/24 03/17/24 01:20 01:23 01:26 Temperature 98.1 F Pulse Rate 84 80 83 Respiratory 18 19 18 Rate Blood Pressure 114/59 O2 Sat by Pulse 100 Oximetry Medical Decision Making - Medical Decision Making Was pt. sent in by a medical professional or institution (, PA, B[employer] AND [employer]ER MECHANIC, urgent care, hospital, or custodial...) When possible be specific @ -No Did you speak to anyone other than the patient for history (EMS, parent, family, police, friend...)? What history was obtained from this source @ -No Did you review nursing and triage notes (agree or disagree)? Why? @ -I reviewed and agree with nursing and triage notes Were old charts reviewed (outside hosp., previous admission, EMS record, old EKG, old radiological studies, urgent care reports/EKG's, custodial records)? Report findings @ -No old charts were reviewed Differential Diagnosis (chest pain, altered mental status, abdominal pain women, abdominal pain men, vaginal bleeding, weakness, fever, dyspnea, syncope, headache, dizziness, GI bleed, back pain, seizure, CVA, palpatations, mental health, musculoskeletal)? @ -Viral illness, pertussis, bronchitis, pneumonia... This list is not meant to be all-inclusive EKG interpreted by me (3pts min.). @ -None done X-rays interpreted by me (1pt min.). @ -CXR negative for acute focal consolidation, pneumothorax or pleural effusions. CT interpreted by me (1pt min.). @ -None done U/S interpreted by me (1pt. min.). @ -None done What testing was considered but not performed or refused? (CT, X-rays, U/S, labs)? Why? @ -Cephid considered but not performed as patient symptoms have been ongoing for 5 weeks. What meds were considered but not given or refused? Why? @ -None Did you discuss the management of the patient with other professionals (professionals i.e. , PA, B[employer] AND F[employer]ER MECHANIC, lab, RT, psych nurse, geriatric social worker, golf cart maker, teacher, fiscal officer, caseworker intake)? Give summary @ -No Was smoking cessation discussed for >3mins.? @ -No Was critical care preformed (if so, how long)? @ -No Were there social determinants of health that impacted care today? How? (Homelessness, low income, unemployed, alcoholism, drug addiction, transportation, low edu. Level, literacy, decrease access to med. care, residential, rehab)? @ -No Was there de-escalation of care discussed even if they declined (Discuss DNR or withdrawal of care, Hospice)? DNR status @ -No What co-morbidities impacted this encounter? (DM, HTN, Smoking, COPD, CAD, Cancer, CVA, ARF, Chemo, Hep., AIDS, mental health diagnosis, sleep apnea, morbid obesity)? @ -None Was patient admitted / discharged? Hospital course, mention meds given and route, prescriptions, significant lab abnormalities, going to OR and other pertinent info. @ -Discharge. 38 year old female presenting to the ER with a chief complaint of a cough x 5 weeks. History and physical exam completed. Vitals within normal limits. Patient in no signs of acute distress but does have a harsh cough on exam. Otherwise benign exam. CXR negative for focal consolidation, pneumothorax or pleural effusions. Urinalysis obtained as patient complaining of urinate on herself. This is negative for signs of infection. Urination believed to be due to bearing down and coughing. Patient will be treated for pertussis with azithromycin. Patient received DuoNeb nebulizer prior to discharge. Patient does report follow-up with PCP on 03-20-2024. Strict return parameters discussed. Patient discharged in stable condition with follow-up to PCP. Patient verbally expressed understanding and agreement with care plan. Case discussed with ED attending, Dr. Srinivasan. Undiagnosed new problem with uncertain prognosis? @ -No Drug Therapy requiring intensive monitoring for toxicity (Heparin, Nitro, Insulin, Cardizem)? @ -No Were any procedures done? @ -No Diagnosis/symptom? @ -Pertussis Acute, or Chronic, or Acute on Chronic? @ -Acute Uncomplicated (without systemic symptoms) or Complicated (systemic symptoms)? @ -Uncomplicated Side effects of treatment? @ -No Exacerbation, Progression, or Severe Exacerbation? @ -No Poses a threat to life or bodily function? How? (Chest pain, [place], [place], pneumonia, PE, COPD, DKA, ARF, appy, cholecystitis, CVA, Diverticulitis, Homicidal, Suicidal, threat to staff... and all critical care pts) @ -No - Lab Data Lab Results 03/17/24 Range/Units 00:15 Urine Color Colorless Urine Appearance Clear (Clear) Urine pH 5.5 (5.0-8.0) Ur Specific [place] 1.012 (1.001-1.035) Urine Protein Negative (Negative) Urine Glucose (UA) Negative (Negative) Urine Ketones Negative (Negative) Urine Blood Negative (Negative) Urine Nitrite Negative (Negative) Urine Bilirubin Negative (Negative) Urine Urobilinogen <2.0 (<2.0) mg/dL Ur Leukocyte Esterase Negative (Negative) - Radiology Data Radiology results: report reviewed, image reviewed Disposition Clinical Impression: Pertussis Disposition: HOME SELF-CARE Condition: Stable Instructions (If sedation given, give patient instructions): Pertussis (ED) Additional Instructions: Complete full course of azithromycin. Follow-up with PCP. Return to the ER for any new or worsening concerns Prescriptions: Azithromycin [Zithromax Z Pack] 0 tab PO DIRECTED #6 tab Is patient prescribed a controlled substance at d/c from ED?: No Referrals: Keenan Patterson DO [Primary Care Provider] - 1-2 days Time of Disposition: 00:53
[2024-03-17 01:08] VITALS: BP 114/59; TEMP 98.1
[2024-03-17] MEDS: IPRATROPIUM-ALBUTEROL 3 ML NEB INHALATION STA (01:18)
[2024-03-17 01:27] VITALS: PULSE 83; RESP 18
[2024-03-17] MEDS: ACETAMINOPHEN TAB 500 MG TAB PO STA (01:27)
== END 2024-03-17 01:31 | disposition home or self-care (01) ==
LOC: EC 23:30
DX: A37.00 Whooping cough due to Bordetella pertussis without pneumonia (principal); Z88.5 Allergy status to narcotic agent; Z88.0 Allergy status to penicillin; Z88.8 Allergy status to other drugs, medicaments and biological substances
CPT/HCPCS: 71046; 81003; 94640; 99285